=== PATIENT | male | born 1940 | race Caucasian/White ===

== ENCOUNTER 2016-09-17 21:12 | Observation (INO) | payer MEDICARE, OTHER ==
[2016-09-17] MEDS ORDERED: BABY ASPIRIN 81 MG CHEW PO ONE (21:49)
[2016-09-17] MEDS ORDERED: NITRO-BID 2% UD PACKETS TOP ONE (21:49)
[2016-09-17] MEDS ORDERED: Nitrostat 0.4 MG (ED) SL ONE ×2 (21:49→21:55)
[2016-09-17] MEDS ORDERED: BABY ASPIRIN 81 MG CHEW ONE (21:54)
[2016-09-17] MEDS ORDERED: Sodium Chloride 0.9% 1000 ML 1,000 ML ONE (21:55)
[2016-09-17] MEDS ORDERED: NITRO-BID 2% UD PACKETS ONE (21:55)
--- NOTE | 2016-09-17 21:55 | ERPHSYRPT ---
- History of Present Illness Time Seen by Provider: 09/17/16 21:35 Source: patient Exam Limitations: clinical condition Patient Subjective Stated Complaint: Pt sts left arm tingling/numbness intermittent all day. Also states in left lower leg intermittent. Onset greater than 4 hours ago. Sts left chest pain that waxes and wanes from dull to sharp. Sts feels left side of head and neck is numb feeling. Rates pain currently 6/ 10. Sts nausea and shortness of breath. Denies diaphoresis today. Sts takes 325 ASA daily, took it today 0800. Sts also takes blood thinners - thinks its plavix. Denies difficulty with gait, denies difficulty finding words or having trouble speaking. Triage Nursing Assessment: Pt alert, oriented, ambulatory to tx room. Steady gait noted. Answers all questions appropriately. Skin p/w/d, resps non-labored. EKG at triage - Sinus rhythm. Physician History: PATIENT WITH A HISTORY OF HYPERTENSION, VERTEBRAL ARTERY STENOSIS, COMPLAINS OF LEFT SCALP, FACIAL, LEFT UPPER EXTREMITY NUMBNESS PAST 4 HOURS, AND THE PAST 3- 4 MONTHS. EVALUATED BY [facility] NEUROLOGIST AND NEUROSURGEON. PATIENT ALSO COMPLAINS OF DULL ACHING SUBSTERNAL CHEST PAIN OVER PAST FEW HOURS. Timing/Duration: hour(s) Severity: mild Character of Deficits: altered sensation, Left Facial, LUE Deficits: no difficulties Baseline/Normal Cognition: alert oriented x 3 Current Cognition: alert oriented x 3 Baseline Gait: walks w/o assistance Associated Symptoms: paresthesia (IN LEFT SIDE OF FACE AND UPPER ARM) Allergies/Adverse Reactions: No Known Drug Allergies Allergy (Unverified 01/28/16 14:53) Home Medications: Furosemide 80 mg [Lasix 80 mg] 80 mg PO BID 01/28/16 [History] Hydralazine HCl 200 mg PO BID 01/28/16 [History] Hydrochlorothiazide 12.5 mg PO DAILY 01/28/16 [History] Losartan Potassium 100 mg PO DAILY 01/28/16 [History] Potassium Chloride 20 Meq [Klor-Con 20 MEQ] 40 meq PO DAILY 01/28/16 [History] Cetirizine HCl 10 mg PO DAILY 09/17/16 [History] Clopidogrel Bisulfate 75 mg [PLAVIX 75 MG Tablet] 75 mg PO DAILY 09/17/16 [History] Meclizine HCl 25 mg [Antivert 25 mg] 12.5 mg PO Q8H PRN PRN 09/17/16 [ History] Hx Tetanus, Diphtheria Vaccination/Date Given: No Hx Influenza Vaccination/Date Given: Yes Hx Pneumococcal Vaccination/Date Given: No Immunizations Up to Date: No - Review of Systems Constitutional: No Fever, No Chills Eyes: No Symptoms Ears, Nose, & Throat: No Symptoms Respiratory: No Symptoms, No Cough, No Dyspnea Cardiac: Chest Pain, No Edema, No Syncope Abdominal/Gastrointestinal: No Symptoms, No Abdominal Pain, No Nausea, No Vomiting, No Diarrhea Genitourinary Symptoms: No Symptoms, No Dysuria Musculoskeletal: No Symptoms, No Back Pain, No Neck Pain Skin: No Symptoms, No Rash Neurological: Parasthesia, No Dizziness, No Focal Weakness, No Sensory Changes Psychological: No Symptoms Endocrine: No Symptoms All Other Systems: Reviewed and Negative - Past Medical History Pertinent Past Medical History: Yes Cardiac History: High Cholesterol, Hypertension Other Medical History: water retention, VBI - Past Surgical History Past Surgical History: Yes Cardiac: Cardiac Catheterization Gastrointestinal: Colon Resection Other Surgical History: colon resection--ulcer, SHOULDER BILAT - Social History Smoking Status: Former smoker Exposure to second hand smoke: No Drug Use: none Patient Lives Alone: No Significant Family History: heart disease, hypertension - Nursing Vital Signs Nursing Vital Signs: Initial Vital Signs Temperature 98.7 F Temperature Source Oral Pulse Rate 75 Respiratory Rate 16 Blood Pressure [Left Arm] 130/76 Pain Intensity 6 - Physical Exam General Appearance: no apparent distress, alert Eye Exam: bilateral eye: normal inspection, PERRL, EOMI Ears, Nose, Throat Exam: normal ENT inspection Neck Exam: normal inspection, non-tender, supple Respiratory: normal breath sounds Cardiovascular: regular rate/rhythm, normal heart sounds Gastrointestinal: soft, normal bowel sounds Back Exam: normal inspection, normal range of motion Extremity Exam: normal inspection, normal range of motion Peripheral Pulses: carotid (R): 2+, carotid (L): 2+, femoral (R): 2+, femoral (L ): 2+, dorsalis-pedis (R): 2+, dorsalis-pedis (L): 2+ 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, 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: normal hearing, normal speech Coordination/Gait: normal finger to nose Motor/Sensory: no motor deficit, no sensory deficit DTR: bicep (R): 2+, bicep (L): 2+, tricep (R): 2+, tricep (L): 2+, knee (R): 2+ , knee (L): 2+, ankle (R): 2+, ankle (L): 2+ Skin Exam: normal color SpO2 Interpretation: normal SpO2: 96 Oxygen Delivery: Room Air - Course Nursing assessment & vital signs reviewed: Yes EKG Interpreted by Me: RATE, Sinus Rhythm, NORMAL AXIS, Non-specific ST Changes (RATE 85) Ordered Tests: Active Orders 24 hr Category Date Time Status Bedrest with BRP/BSC ROUTINE Activity 09/17/16 23:44 Active Admission/Status Order ROUTINE Care 09/17/16 23:44 Active Call Admit Doctor for Orders ROUTINE Care 09/17/16 23:43 Active Code Status Order ROUTINE Care 09/17/16 23:44 Active EKG-ER Only STAT Care 09/17/16 21:49 Active IV Care Q6H Care 09/17/16 23:44 Active IV Insertion STAT Care 09/17/16 21:32 Active Implement Chest Pain Pathway ROUTINE Care 09/17/16 23:44 Active Oxygen-ED Only NASAL CANNULA 2 lpm Care 09/17/16 21:49 Active Ronnie Lucas ROUTINE Care 09/17/16 23:44 Active Telemetry ROUTINE Care 09/17/16 23:44 Active Vital Signs Q4H Care 09/17/16 23:43 Active Weight,Daily 0600 Care 09/17/16 23:44 Active Cardiac Diet Diet 09/17/16 Breakfast Active CHEST 1 VIEW (PORTABLE) Stat Exams 09/17/16 21:46 Taken HEAD WITHOUT CONTRAST [CT] Stat Exams 09/17/16 21:46 Taken CBC W DIFF Stat Lab 09/17/16 22:00 Completed CMP Stat Lab 09/17/16 22:00 Completed LIPID PROFILE AM.LAB Lab 09/18/16 04:00 Ordered MAGNESIUM Stat Lab 09/17/16 22:00 Completed PROTIME WITH INR Stat Lab 09/17/16 22:00 Completed TROPONIN Q3H Lab 09/17/16 22:00 Completed TROPONIN Q3H Lab 09/18/16 01:00 Ordered TROPONIN Q3H Lab 09/18/16 04:00 Ordered TROPONIN Q3H Lab 09/18/16 07:00 Ordered TROPONIN Q3H Lab 09/18/16 10:00 Ordered EKG Q8HX2,QAMX3,PRN RT 09/17/16 23:44 Active Pulse Oximetry Q4H RT 09/17/16 23:44 Active Transfer Order Routine Transfer 09/17/16 23:43 Ordered Medication Summary Generic Name Dose Route Start Last Admin Trade Name Freq PRN Reason Stop Dose Admin Acetaminophen 650 mg 09/17/16 23:43 Tylenol 325 Mg PO 10/17/16 23:42 Q4H PRN PRN PAIN AND/OR FEVER Al Hydrox/Mg Hydrox/Simethicone 30 ml 09/17/16 23:43 Maalox Es 30 Ml Unit Dose PO 10/17/16 23:42 Q4H PRN PRN INDIGESTION Aspirin 325 mg 09/18/16 10:00 Ecotrin 325 Mg PO 10/18/16 09:59 DAILY RAFAL Clopidogrel Bisulfate 75 mg 09/18/16 10:00 Plavix 75 Mg Tablet PO 10/18/16 09:59 DAILY RAFAL Sodium Chloride 1,000 mls @ 50 mls/hr 09/17/16 22:00 09/17/16 22:00 Sodium Chloride 0.9% 1000 Ml IV 10/17/16 21:59 50 mls/hr .Q20H RAFAL Administration Magnesium Hydroxide 30 - 60 ml 09/17/16 23:43 Milk Of Magnesia 30 Ml PO 10/17/16 23:42 QDP PRN CONSTIPATION Morphine Sulfate 2 mg 09/17/16 23:43 Morphine Sulfate 2 Mg Inj IV 09/22/16 23:42 .Q15MIN PRN PRN CHEST PAIN Nitroglycerin 0.4 mg 09/17/16 23:43 Nitrostat 0.4 Mg Tablet SL 10/17/16 23:42 .Q5MIN PRN CHEST PAIN Nitroglycerin 1 gm 09/18/16 06:00 Nitro-Bid 2% Ud Packets TOP 10/18/16 05:59 Q8HT RAFAL Ondansetron HCl 4 mg 09/17/16 23:43 Zofran 4 Mg/2 Ml Vial IV 10/17/16 23:42 Q4H PRN PRN NAUSEA/VOMITING Senna/Docusate Sodium 2 udtab 09/17/16 23:43 Senokot-S Tablet PO 10/17/16 23:42 BID PRN PRN CONSTIPATION Discontinued Medications Generic Name Dose Route Start Last Admin Trade Name Freq PRN Reason Stop Dose Admin Aspirin 324 mg 09/17/16 21:49 09/17/16 22:00 Baby Aspirin 81 Mg Chew PO 09/17/16 21:50 324 mg STAT ONE Administration Aspirin Confirm 09/17/16 21:54 Baby Aspirin 81 Mg Chew Administered 09/17/16 21:55 Dose 324 mg .ROUTE .STK-MED ONE Sodium Chloride Confirm 09/17/16 21:55 Sodium Chloride 0.9% 1000 Ml Administered 09/17/16 21:56 Dose 1,000 mls @ ud .ROUTE .STK-MED ONE Nitroglycerin 0.4 mg 09/17/16 21:49 09/17/16 22:00 Nitrostat 0.4 Mg (Ed) SL 09/17/16 21:50 0.4 mg STAT ONE Administration Nitroglycerin 1 gm 09/17/16 21:49 09/17/16 22:00 Nitro-Bid 2% Ud Packets TOP 09/17/16 21:50 1 gm STAT ONE Administration Nitroglycerin Confirm 09/17/16 21:55 Nitro-Bid 2% Ud Packets Administered 09/17/16 21:56 Dose 1 gm .ROUTE .STK-MED ONE Nitroglycerin Confirm 09/17/16 21:55 Nitrostat 0.4 Mg (Ed) Administered 09/17/16 21:56 Dose 0.4 mg SL .STK-MED ONE Lab/Rad Data: Laboratory Result Diagrams 09/17/16 22:00 09/17/16 22:00 Laboratory Results 09/17/16 09/17/16 09/17/16 Range/Units 22:00 22:00 22:00 WBC (4.0-10.5) K/mm3 RBC (4.1-5.6) M/mm3 Hgb (12.5-18.0) gm/dl Hct (42-50) % MCV (78-100) fl MCH (26-32) pg MCHC (32-36) g/dl RDW (11.5-14.0) % Plt Count (150-450) K/mm3 MPV (6-9.5) fl Gran % (36.0-66.0) % Lymphocytes % (24.0-44.0) % Monocytes % (0.0-12.0) % Eosinophils % (0.00-5.0) % Basophils % (0.0-0.4) % Basophils # (0-0.4) INR 1.02 (0.8-3.0) Sodium (136-145) mEq/L Potassium (3.5-5.1) mEq/L Chloride (98-107) mEq/L Carbon Dioxide (21-32) mEq/L Anion Gap (5-15) MEQ/L BUN (9-20) mg/dL Creatinine (0.55-1.30) mg/dl Estimated GFR ML/MIN Glucose (70-110) MG/DL Calcium (8.5-10.1) mg/dL Magnesium 2.2 (1.8-2.4) mg/dL Total Bilirubin (0.2-1.0) mg/dL AST (15-37) U/L ALT (12-78) U/L Alkaline Phosphatase (46-116) U/L Troponin I < 0.017 (0.000-0.056) ng/ml Serum Total Protein (6.4-8.2) gm/dL Albumin (3.4-5.0) g/dL 09/17/16 09/17/16 Range/Units 22:00 22:00 WBC 7.3 (4.0-10.5) K/mm3 RBC 4.27 (4.1-5.6) M/mm3 Hgb 13.6 (12.5-18.0) gm/dl Hct 39.4 L (42-50) % MCV 92.3 (78-100) fl MCH 31.9 (26-32) pg MCHC 34.5 (32-36) g/dl RDW 13.6 (11.5-14.0) % Plt Count 164 (150-450) K/mm3 MPV 9.6 H (6-9.5) fl Gran % 68.6 H (36.0-66.0) % Lymphocytes % 18.0 L (24.0-44.0) % Monocytes % 10.4 (0.0-12.0) % Eosinophils % 2.5 (0.00-5.0) % Basophils % 0.5 (0.0-0.4) % Basophils # 0.04 (0-0.4) INR (0.8-3.0) Sodium 142 (136-145) mEq/L Potassium 3.6 (3.5-5.1) mEq/L Chloride 104 (98-107) mEq/L Carbon Dioxide 28.5 (21-32) mEq/L Anion Gap 12.6 (5-15) MEQ/L BUN 26 H (9-20) mg/dL Creatinine 1.38 H (0.55-1.30) mg/dl Estimated GFR 54 ML/MIN Glucose 120 H (70-110) MG/DL Calcium 8.9 (8.5-10.1) mg/dL Magnesium (1.8-2.4) mg/dL Total Bilirubin 0.4 (0.2-1.0) mg/dL AST 24 (15-37) U/L ALT 35 (12-78) U/L Alkaline Phosphatase 61 (46-116) U/L Troponin I (0.000-0.056) ng/ml Serum Total Protein 7.2 (6.4-8.2) gm/dL Albumin 4.0 (3.4-5.0) g/dL - Progress Progress Note: 09/17/16 22:10 PATIENT GIVEN BABY ASPIRIN 81MG X 4 TABLETS, NITROGLYCERIN 0.4MG SL X1, NITROPASTE 1'' ANTERIOR CHEST WALL Discussed with : Ciro (DISCUSSED WITH DR FIELD AT 2250 FOR OBSERVATION) - Departure Time of Disposition: 23:55 Departure Disposition: Observation Clinical Impression: ACUTE CHEST PAIN, VERTEBRAL ARTERY STENOSIS Condition: Stable Critical Care Time: No Referrals: EDITH FIELD MD [Primary Care Provider] -
[2016-09-17] MEDS: Sodium Chloride 0.9% 1000 ML 1,000 ML IV SCH (22:00)
[2016-09-17 22:11] LABS: BASOPHIL % 0.5 % (0.0-0.4); Eosinophil % 2.5 % (0.00-5.0); Granulocytes % 68.6 % (36.0-66.0); Mean Cell Volume 92.3 fl (78-100); Mean Corpuscular Hemoglobin 31.9 pg (26-32); Mean Platelet Volume 9.6 fl (6-9.5); Monocytes % 10.4 % (0.0-12.0); Platelet Count 164 K/mm3 (150-450); Red Blood Count 4.27 M/mm3 (4.1-5.6); Red Cell Distribution Width 13.6 % (11.5-14.0); White Blood Count 7.3 K/mm3 (4.0-10.5)
[2016-09-17 22:27] LABS: INR 1.02 (0.8-3.0); PROTIME 11.4 SECONDS (8.83-12.87)
[2016-09-17 22:35] LABS: ANION GAP 12.6 MEQ/L (5-15); BILIRUBIN,TOTAL 0.4 mg/dL (0.2-1.0); Carbon Dioxide 28.5 mEq/L (21-32); Potassium 3.6 mEq/L (3.5-5.1); Total Protein 7.2 gm/dL (6.4-8.2)
[2016-09-17] MEDS ORDERED: Zofran 4 MG/2 ML VIAL IV PRN (23:43)
[2016-09-17] MEDS ORDERED: MILK OF MAGNESIA 30 ML PO PRN (23:43)
[2016-09-17] MEDS ORDERED: TYLENOL 325 MG PO PRN (23:43)
[2016-09-17] MEDS ORDERED: Senokot-S Tablet PO PRN (23:43)
[2016-09-17] MEDS ORDERED: MAALOX ES 30 ML UNIT DOSE PO PRN (23:43)
[2016-09-17] MEDS ORDERED: MORPHINE SULFATE 2 MG INJ IV PRN (23:43)
[2016-09-17] MEDS ORDERED: Nitrostat 0.4 MG Tablet SL PRN (23:43)
[2016-09-18] MEDS: Sodium Chloride 0.9% 1000 ML 1,000 ML IV SCH (03:16)
[2016-09-18] MEDS ORDERED: NITRO-BID 2% UD PACKETS TOP SCH (06:00)
[2016-09-18 07:35] VITALS: BP 128/64; PULSE 85; O2SAT 91
--- NOTE | 2016-09-18 08:35 | XRAY ---
Indication: Left-sided numbness and left-sided headache. Multiple contiguous axial images obtained through the head without contrast. Comparison: January 28, 2016. Again there is age-appropriate global atrophy and moderate periventricular degenerative micro-ischemia bilaterally. No acute intracranial hemorrhage, abnormal extra-axial fluid collection, or mass effect. Fourth ventricle is midline without hydrocephalus. Bony calvarium intact. Visualized paranasal sinuses and mastoid air cells are clear. Impression: Stable nonacute senile brain. Comment: Preliminary interpretation was made by [facility]. No discrepancy. CTDI 68.98
--- NOTE | 2016-09-18 08:37 | XRAY ---
Indication: Chest pain. Comparison: January 28, 2016. Portable chest remains clear again with chronic right hemidiaphragm elevation. Heart is not enlarged for AP portable technique. Vascularity normal. Bony thorax intact again with mild osteopenia and degenerative changes. Impression: Stable nonacute chest with chronic features.
--- NOTE | 2016-09-18 09:41 | PCM.SSS ---
History of Present Illness - Chief Complaint Chief Complaint: Acute chest pain History of Present Illness: is a 75 year old male who is well known to me who follows at [facility] with a history of vertebrbasilar insufficiency. He presented to the ER last night with numbness to the left arm and chest pain that was substernal and tight, he had nausea and shortness of breath. His symptoms have totally resolved since admission, he has frequent episodes of numbness in the facial and neck region etc related to his VBI and is followed for those. 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 He is symptom free at this time other than a headache which he attributes to nitro paste. - Review of Systems Constitutional: No Fever, No Chills Respiratory: No Symptoms Cardiac: No Chest Pain, No Edema, No Syncope Skin: No Rash Neurological: No Dizziness, No Focal Weakness, No Sensory Changes All Other Systems: Reviewed and Negative Medications & Allergies Home Medications: Home Medication List Furosemide 80 mg [Lasix 80 mg] 80 mg PO BID 01/28/16 [History Confirmed ] Hydralazine HCl 200 mg PO DAILY 01/28/16 [History Confirmed 09/18/16] Hydrochlorothiazide 12.5 mg PO DAILY 01/28/16 [History Confirmed 09/18/16] Losartan Potassium 100 mg PO DAILY 01/28/16 [History Confirmed 09/18/16] Potassium Chloride 20 Meq [Klor-Con 20 MEQ] 40 meq PO BID 01/28/16 [History Confirmed 09/18/16] Cetirizine HCl 10 mg PO DAILY 09/17/16 [History Confirmed 09/17/16] Clopidogrel Bisulfate 75 mg [PLAVIX 75 MG Tablet] 75 mg PO DAILY 09/17/16 [History Confirmed 09/17/16] Meclizine HCl 25 mg [Antivert 25 mg] 12.5 mg PO Q8H PRN PRN 09/17/16 [ History Confirmed 09/17/16] Allergies/Adverse Reactions: Allergies Allergy/AdvReac Type Severity Reaction Status Date / Time No Known Drug Allergies Allergy Unverified 01/28/16 14:53 - Past Medical History Past Medical History: Yes Neurological History: No Pertinent History ENT History: Cataracts Cardiac History: High Cholesterol, Hypertension Respiratory History: Sleep Apnea Endocrine Medical History: No Pertinent History Musculoskelatal History: No Pertinent History GI Medical History: GI Bleed, Polyps History: No Pertinent History Pyscho-Social History: No Pertinent History Male Reproductive Disorders: No Pertinent History Comment: water retention, VBI - Past Surgical History Past Surgical History: Yes Neuro Surgical History: No Pertinent History Cardiac History: Cardiac Catheterization Respiratory Surgery: No Pertinent History GI Surgical History: Colon Resection Genitourinary Surgical Hx: No Pertinent History Musculskeletal Surgical Hx: Other Male Surgical History: No Pertinent History Other Surgical History: colon resection--ulcer, SHOULDER BILAT, Aleks knees - Social History Smoking Status: Former smoker Exposure to second hand smoke: No Alcohol: None Drug Use: none Significant Family History: heart disease, hypertension - Physical Exam Vital Signs: Vital Signs - 24 hr Temp Pulse Resp BP Pulse Ox 09/18/16 07:34 98.2 F 85 19 128/64 91 L 09/18/16 04:00 97.7 F 76 17 131/68 95 09/18/16 00:34 97.9 F 79 18 166/78 98 09/18/16 00:07 80 18 136/76 09/17/16 23:57 96 09/17/16 23:15 75 16 130/76 96 09/17/16 22:30 75 16 150/86 96 09/17/16 21:28 98.7 F 88 14 156/87 96 General Appearance: no apparent distress, alert Neurologic Exam: alert, oriented x 3, cooperative, normal mood/affect, nml cerebellar function, nml station & gait, sensation nml, No motor deficits Eye Exam: PERRL/EOMI, eyes nml inspection Respiratory Exam: normal breath sounds, lungs clear, No respiratory distress Cardiovascular Exam: regular rate/rhythm, normal heart sounds, normal peripheral pulses Skin Exam: normal color, warm, dry, No rash Results - Labs Lab/Micro Results: Lab Results-Last 24 Hours 09/18/16 09/18/16 09/18/16 Range/Units 01:00 04:05 04:05 Troponin I < 0.017 < 0.017 (0.000-0.056) ng/ml Triglycerides 161 (30-200) mg/dL Cholesterol 109 (100-200) mg/dL LDL Cholesterol 43 (5-99) mg/dL HDL Cholesterol 41 (35-60) mg/dL Heart Disease Risk Ratio 2.7 09/18/16 Range/Units 07:00 Troponin I < 0.017 (0.000-0.056) ng/ml Triglycerides (30-200) mg/dL Cholesterol (100-200) mg/dL LDL Cholesterol (5-99) mg/dL HDL Cholesterol (35-60) mg/dL Heart Disease Risk Ratio - Other Procedures and Tests Respiratory Therapy 09/19/16 05:00 EKG DAILY 09/20/16 05:00 EKG DAILY 09/21/16 05:00 EKG DAILY Assessment/Plan (1) Chest pain Current Visit: Yes Status: Acute Code(s): R07.9 - CHEST PAIN, UNSPECIFIED (2) Vertebrobasilar artery insufficiency Current Visit: Yes Status: Acute Code(s): G45.0 - VERTEBRO-BASILAR ARTERY SYNDROME Hospital Summary - Vitals & Intake/Output Vital Signs: Vital Signs Temperature 98.2 F 09/18/16 07:34 Pulse Rate 85 09/18/16 07:34 Respiratory Rate 19 09/18/16 07:34 Blood Pressure 128/64 09/18/16 07:34 O2 Sat by Pulse Oximetry 91 L 09/18/16 07:34 Intake & Output: Intake & Output 09/15/16 09/16/16 09/17/16 09/18/16 11:59 11:59 11:59 11:59 Intake Total 760 Balance 760 Weight 104.326 kg - Lab Result Diagrams: 09/17/16 22:00 09/17/16 22:00 Lab Results-Last 24 Hrs: Lab Results-Last 24 Hours 09/18/16 09/18/16 09/18/16 Range/Units 01:00 04:05 04:05 Troponin I < 0.017 < 0.017 (0.000-0.056) ng/ml Triglycerides 161 (30-200) mg/dL Cholesterol 109 (100-200) mg/dL LDL Cholesterol 43 (5-99) mg/dL HDL Cholesterol 41 (35-60) mg/dL Heart Disease Risk Ratio 2.7 09/18/16 Range/Units 07:00 Troponin I < 0.017 (0.000-0.056) ng/ml Triglycerides (30-200) mg/dL Cholesterol (100-200) mg/dL LDL Cholesterol (5-99) mg/dL HDL Cholesterol (35-60) mg/dL Heart Disease Risk Ratio - Procedures and Test Procedures and Tests throughout Hospitalization: Therapy Orders & Screens 09/17/16 23:44 EKG Q8HX2,QAMX3,PRN Comment: 09/18/16 05:30 EKG ROUTINE Comment: Diagnosis: Acute chest pain 09/19/16 05:00 EKG DAILY Comment: Diagnosis: Acute chest pain 09/20/16 05:00 EKG DAILY Comment: Diagnosis: Acute chest pain 09/21/16 05:00 EKG DAILY Comment: Diagnosis: Acute chest pain - Discharge Disposition: Home, Self-Care Condition: Stable Prescriptions: Continue Potassium Chloride 20 Meq [Klor-Con 20 MEQ] 40 meq PO BID Losartan Potassium 100 mg PO DAILY Hydralazine HCl 200 mg PO DAILY Furosemide 80 mg [Lasix 80 mg] 80 mg PO BID Hydrochlorothiazide 12.5 mg PO DAILY Meclizine HCl 25 mg [Antivert 25 mg] 12.5 mg PO Q8H PRN PRN PRN Reason: Dizziness Cetirizine HCl 10 mg PO DAILY Clopidogrel Bisulfate 75 mg [PLAVIX 75 MG Tablet] 75 mg PO DAILY Additional Instructions: return for arm or leg muscle weakness, slurred speech, facial drooping or other new concerns. call Dr Guidry on Tuesday morning to schedule a followup appointment DORITA. return for persistent chest pain or other new concerns. Follow up with: EDITH FIELD MD [Primary Care Provider] -
[2016-09-18] MEDS ORDERED: Ecotrin 325 MG PO SCH (10:00)
[2016-09-18] MEDS ORDERED: PLAVIX 75 MG Tablet PO SCH (10:00)
== END 2016-09-18 11:10 | disposition home or self-care (01) ==
LOC: ED 21:12 → MED SURG 09-18 00:32
PROVIDERS: ADMIT Family Medicine; ATTEND Family Medicine
DX: R07.9 Chest pain, unspecified (principal); G45.0 Vertebro-basilar artery syndrome; R51 Headache; I10 Essential (primary) hypertension; Z79.899 Other long term (current) drug therapy
CPT/HCPCS: 36000; 36415; 70450; 71010; 80053; 83690; 83735; 84484; 85025; 85610; 93005; 93268; 96360; 96361; 99284; 99285; G0378

== ENCOUNTER 2017-09-26 13:59 | Inpatient (IN) | payer MEDICARE, OTHER ==
[2017-09-26] MEDS ORDERED: Sodium Chloride 0.9% 1000 ML 1,000 ML IV SCH (14:15)
--- NOTE | 2017-09-26 14:35 | ERPHSYRPT ---
- History of Present Illness Time Seen by Provider: 09/26/17 14:17 Source: patient, family (), other (MERCHANDISE ADJUSTMENT CLERK Ollie) Patient Subjective Stated Complaint: states was seen earlier today by rnp and had blood work done. was called at home and told his blood sugar was high. has been having dry mouth and felt off balance lately. denies any other symptoms Triage Nursing Assessment: skin w/d, color normal, resp easy. Physician History: CC: general weakness Hx: 76 y/o patient of Dr Field. He has one month hx of fatigue, feeling general weakness, and polyuria, polydipsia, and 10 pound weight loss. No fever or chills. No chest pain. No V/D. He went to office today and the sugar was high so he was sent here for admission. Pt has no hx of DM. He has hx of vertebro- basilar insufficiency. 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 Labs this AM: Faz180, creat 2.03, A1C 10.4. Normal CBC. Severity: moderate Allergies/Adverse Reactions: No Known Drug Allergies Allergy (Verified 09/26/17 14:24) Home Medications: Furosemide 80 mg [Lasix 80 mg] 80 mg PO BID 01/28/16 [History] Hydralazine HCl 200 mg PO DAILY 01/28/16 [History] Hydrochlorothiazide 12.5 mg PO DAILY 01/28/16 [History] Losartan Potassium 100 mg PO DAILY 01/28/16 [History] Potassium Chloride 20 Meq [Klor-Con 20 MEQ] 40 meq PO BID 01/28/16 [History] Cetirizine HCl 10 mg PO DAILY 09/17/16 [History] Clopidogrel Bisulfate 75 mg [PLAVIX 75 MG Tablet] 75 mg PO DAILY 09/17/16 [History] Meclizine HCl 25 mg [Antivert 25 mg] 12.5 mg PO Q8H PRN PRN 09/17/16 [ History] Hx Tetanus, Diphtheria Vaccination/Date Given: No Hx Influenza Vaccination/Date Given: Yes Hx Pneumococcal Vaccination/Date Given: Yes - Review of Systems Constitutional: Malaise, Weakness, Weight Loss, No Fever, No Chills Eyes: No Symptoms Ears, Nose, & Throat: No Symptoms Respiratory: No Cough, No Dyspnea Cardiac: No Chest Pain Abdominal/Gastrointestinal: No Abdominal Pain, No Nausea, No Vomiting, No Diarrhea Skin: No Rash Neurological: No Focal Weakness, No Headache, No Parasthesia Endocrine: Polyuria, Polydipsia All Other Systems: Reviewed and Negative - Past Medical History Pertinent Past Medical History: Yes Neurological History: No Pertinent History ENT History: Cataracts Cardiac History: High Cholesterol, Hypertension Respiratory History: Sleep Apnea Endocrine Medical History: No Pertinent History Musculoskeletal History: No Pertinent History GI Medical History: GI Bleed, Polyps History: No Pertinent History Psycho-Social History: No Pertinent History Male Reproductive Disorders: No Pertinent History Other Medical History: water retention, VBI - Past Surgical History Past Surgical History: Yes Neuro Surgical History: No Pertinent History Cardiac: Cardiac Catheterization Respiratory: No Pertinent History Gastrointestinal: Colon Resection Genitourinary: No Pertinent History Musculoskeletal: Other Male Surgical History: No Pertinent History Other Surgical History: colon resection--ulcer, SHOULDER BILAT, Aleks knees - Social History Smoking Status: Former smoker Exposure to second hand smoke: No Drug Use: none Patient Lives Alone: No Significant Family History: heart disease, hypertension - Nursing Vital Signs Nursing Vital Signs: Initial Vital Signs Temperature 97.5 F 09/26/17 14:06 Pulse Rate 117 H 09/26/17 14:06 Respiratory Rate 16 09/26/17 14:06 Blood Pressure 133/78 09/26/17 14:06 O2 Sat by Pulse Oximetry 95 09/26/17 14:06 Pain Scale Pain Intensity 0 - Physical Exam General Appearance: alert Eye Exam: PERRL/EOMI Ears, Nose, Throat Exam: normal ENT inspection, dry mucous membranes Neck Exam: normal inspection, non-tender, supple Respiratory Exam: normal breath sounds Cardiovascular Exam: regular rate/rhythm Gastrointestinal/Abdomen Exam: soft, No tenderness, No distention Male Genitalia Exam: normal genitalia Extremity Exam: pedal edema Neurologic Exam: alert, oriented x 3, cooperative, 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 nml as tested, sensation nml, No motor deficits Skin Exam: warm, dry, No rash SpO2 Interpretation: normal SpO2: 96 - Course Nursing assessment & vital signs reviewed: Yes Ordered Tests: Active Orders 24 hr Category Date Time Status Clean Catch Urine Specimen STAT Care 09/26/17 14:12 Active EKG-ER Only STAT Care 09/26/17 14:12 Active IV Insertion STAT Care 09/26/17 14:12 Active Pulse Oximetry (ED) STAT Care 09/26/17 14:12 Active Glucose,Critical Care Urgent Lab 09/26/17 14:40 Completed MAGNESIUM Stat Lab 09/26/17 14:25 Received UA W/RFX UR CULTURE Stat Lab 09/26/17 14:25 Completed VENOUS BLOOD GAS Urgent Lab 09/26/17 14:40 Completed Medication Summary Generic Name Dose Route Start Last Admin Trade Name Kala PRN Reason Stop Dose Admin Sodium Chloride 1,000 mls @ 200 mls/hr 09/26/17 14:15 Sodium Chloride 0.9% 1000 Ml IV 10/26/17 14:14 .Q5H RAFAL Lab/Rad Data: Laboratory Results 09/26/17 09/26/17 Range/Units 14:40 14:25 VBG pH 7.37 (7.32-7.42) VBG pCO2 at Pat Temp 51 (42-55) mm/Hg VBG pO2 at Pat Temp 33 (25-40) mm/Hg VBG HCO3 29.5 H* (22-28) meq/L VBG O2 Sat (Noel) 72.0 L (95-100) VBG Base Excess 3.0 H (-2.0-2.0) VBG Hemoglobin 15.6 VBG Carboxyhemoglobin 3.6 (0.0-6.9) % T HGB POC Potassium 4.1 (3.5-5.1) Glucose 723 H* (70-110) Ur Collection Type VOID Urine Color YELLOW (YELLOW) Urine Appearance CLEAR (CLEAR) Urine pH 6.0 (5-6) Ur Specific [place] 1.005 (1.005-1.025) Urine Protein NEGATIVE (Negative) Urine Ketones NEGATIVE (NEGATIVE) Urine Blood NEGATIVE (0-5) Matthew/ul Urine Nitrite NEGATIVE (NEGATIVE) Urine Bilirubin NEGATIVE (NEGATIVE) Urine Urobilinogen NORMAL (0-1) mg/dL Ur Leukocyte Esterase NEGATIVE (NEGATIVE) Urine Culture Reflexed NO (NO) Urine Glucose 500 (NEGATIVE) mg/dL Specimen Received 09/26/17 1530 - Progress Progress Note: 09/26/17 15:07 Not in DKA. IVF started. No sign of infection. Called Dr Field and will place in obs. Counseled pt/family regarding: lab results, diagnosis, need for follow-up - Departure Time of Disposition: 15:08 Departure Disposition: Observation Clinical Impression: New onset type 1 diabetes mellitus, uncontrolled, Azotemia Condition: Fair Critical Care Time: No Referrals: EDITH FIELD MD [Primary Care Provider] -
[2017-09-26 14:41] LABS: Appearance CLEAR (CLEAR); Bilirubin NEGATIVE (NEGATIVE); Blood NEGATIVE Ery/ul (0-5); Glucose 500 mg/dL (NEGATIVE); Ketones NEGATIVE (NEGATIVE); Leukocyte Esterase NEGATIVE (NEGATIVE); Nitrite NEGATIVE (NEGATIVE); Protein,Urine Dip NEGATIVE (Negative); Specific Gravity 1.005 (1.005-1.025); Urobilinogen NORMAL mg/dL (0-1)
[2017-09-26 14:44] LABS: VBG CARBOXYHEMOGLOBIN 3.6 % T HGB (0.0-6.9); VBG HCO3- 29.5 meq/L (22-28); VBG HEMOGLOBIN 15.6; VBG POTASSIUM 4.1 (3.5-5.1); VBG pH 7.37 (7.32-7.42)
[2017-09-26] MEDS ORDERED: NovoLOG Insulin SQ ONE ×2 (15:07→17:00)
[2017-09-26] MEDS ORDERED: NovoLOG Insulin ONE (15:26)
[2017-09-26] MEDS ORDERED: Sodium Chloride 0.9% 1000 ML 1,000 ML ONE (15:26)
[2017-09-26] MEDS ORDERED: TYLENOL 325 MG PO PRN (15:45)
[2017-09-26] MEDS ORDERED: ANTIVERT 25 MG PO PRN (16:59)
[2017-09-26] MEDS ORDERED: LASIX 80 MG PO SCH (17:00)
[2017-09-26] MEDS ORDERED: Lantus Insulin SQ ONE (17:00)
[2017-09-26] MEDS: Zofran 4 MG/2 ML VIAL IV PRN (20:56)
[2017-09-26] MEDS: Klor Con 10 MEQ PO SCH (20:56)
[2017-09-26] MEDS ORDERED: NON-FORMULARY ITEM (Potassium Chloride 20 Meq [Klor-Con 20 Meq] 40 MEQ) PO SCH (22:00)
[2017-09-26] MEDS: NovoLOG Insulin SQ PRN (22:09)
[2017-09-26] MEDS: Sodium Chloride 0.9% 1000 ML 1,000 ML IV SCH (22:09)
[2017-09-27] MEDS: NovoLOG Insulin SQ PRN ×4 (00:33→21:50)
[2017-09-27] MEDS: Sodium Chloride 0.9% 1000 ML 1,000 ML IV SCH ×3 (04:52→17:49)
[2017-09-27] MEDS: Zofran 4 MG/2 ML VIAL IV PRN (05:00)
[2017-09-27 06:19] LABS: ANION GAP 11.6 MEQ/L (5-15); Carbon Dioxide 29.9 mEq/L (21-32); Creatinine 1 1.73 mg/dl (0.55-1.30); Potassium 3.4 mEq/L (3.5-5.1)
--- NOTE | 2017-09-27 09:11 | PCM.HP ---
History of Present Illness - Chief Complaint Chief Complaint: DM. Azotemia. History of Present Illness: is a 76 year old male pt of Dr. Tanner with hx Vertebrobasilar Artery Insufficiency who has been having several months of dizziness, weight loss, polyuria, dry mouth. He thought several sx were related to the vertebral arteries. He was found in ER to have BS 755. This morning the dry mouth is gone, BS is 149, he is feeling better. Less frequent urination. - Review of Systems Constitutional: Weight Loss (12 lb since 08/01/17) Ears, Nose, & Throat: Throat Pain (intermittent; none currently), Hoarse (for the past 1 wk) Musculoskeletal: Fall, Injury (R lower back 1 wk ago; no pain currently) Endocrine: Polyuria, Polydipsia Medications & Allergies Home Medications: Home Medication List Furosemide 80 mg [Lasix 80 mg] 80 mg PO DAILY 01/28/16 [History Confirmed 09/26/17] Hydralazine HCl 200 mg PO DAILY 01/28/16 [History Confirmed 09/26/17] Hydrochlorothiazide 12.5 mg PO DAILY 01/28/16 [History Confirmed 09/26/17] Losartan Potassium 100 mg PO DAILY 01/28/16 [History Confirmed 09/26/17] Potassium Chloride 20 Meq [Klor-Con 20 MEQ] 40 meq PO BID 01/28/16 [History Confirmed 09/26/17] Cetirizine HCl 10 mg PO DAILY 09/17/16 [History Confirmed 09/26/17] Clopidogrel Bisulfate 75 mg [PLAVIX 75 MG Tablet] 75 mg PO DAILY 09/17/16 [History Confirmed 09/26/17] Meclizine HCl 25 mg [Antivert 25 mg] 12.5 mg PO Q8H PRN PRN 09/17/16 [ History Confirmed 09/26/17] Aspirin [Aspirin EC] 325 mg PO DAILY 09/27/17 [History Confirmed 09/27/17] Atorvastatin Calcium [Lipitor 20MG Tablet] 20 mg PO DAILY 09/27/17 [History Confirmed 09/27/17] Allergies/Adverse Reactions: Allergies Allergy/AdvReac Type Severity Reaction Status Date / Time No Known Drug Allergies Allergy Verified 09/26/17 14:24 - Past Medical History Past Medical History: Yes Neurological History: No Pertinent History ENT History: Cataracts Cardiac History: High Cholesterol, Hypertension Respiratory History: Sleep Apnea Endocrine Medical History: No Pertinent History Musculoskelatal History: No Pertinent History GI Medical History: GI Bleed, Polyps History: No Pertinent History Pyscho-Social History: No Pertinent History Male Reproductive Disorders: No Pertinent History Comment: water retention, VBI - Past Surgical History Past Surgical History: Yes Neuro Surgical History: No Pertinent History Cardiac History: Cardiac Catheterization Respiratory Surgery: No Pertinent History GI Surgical History: Colon Resection Genitourinary Surgical Hx: No Pertinent History Musculskeletal Surgical Hx: Other Male Surgical History: No Pertinent History Other Surgical History: colon resection--ulcer, SHOULDER BILAT, Aleks knees - Social History Smoking Status: Former smoker Exposure to second hand smoke: No Alcohol: None Drug Use: none Significant Family History: heart disease, hypertension - Physical Exam Vital Signs: Vital Signs - 24 hr Temp Pulse Resp BP Pulse Ox 09/27/17 07:38 98.3 F 94 H 18 128/65 94 L 09/27/17 04:00 98.6 F 91 H 18 126/61 95 09/27/17 00:00 98.2 F 94 H 19 107/61 95 09/26/17 20:00 98.2 F 111 H 19 114/57 93 L 09/26/17 16:26 97.5 F 98 H 20 133/78 94 L 09/26/17 15:08 96 09/26/17 14:22 96 09/26/17 14:06 97.5 F 117 H 16 133/78 95 General Appearance: no apparent distress, alert, obese Neurologic Exam: alert, oriented x 3, cooperative Eye Exam: eyes nml inspection Ears, Nose, Throat Exam: moist mucous membranes Neck Exam: normal inspection, non-tender, No mass, No lymphadenopathy Respiratory Exam: normal breath sounds, lungs clear, No crackles/rales, No rhonchi, No wheezing Cardiovascular Exam: regular rate/rhythm, normal heart sounds, No murmur Gastrointestinal/Abdomen Exam: soft, normal bowel sounds, No tenderness, No distention, No mass Back Exam: other (R lower back with approx 4x5 cm area macular purple discoloration with firm mass deep to the area) Extremity Exam: normal inspection, No pedal edema, No swelling Skin Exam: normal color, warm, dry, No rash Results - Labs Lab/Micro Results: Accuchecks Date 09/27/17 Time 07:30 Accucheck Value: 181 Accucheck Value: 145 Accucheck Value: 171 Accucheck Value: 356 Lab Results-Last 24 Hours 09/26/17 09/26/17 09/27/17 Range/Units 16:12 18:41 05:36 Sodium 140 (136-145) mEq/L Potassium 3.4 L (3.5-5.1) mEq/L Chloride 102 (98-107) mEq/L Carbon Dioxide 29.9 (21-32) mEq/L Anion Gap 11.6 (5-15) MEQ/L BUN 28 H (9-20) mg/dL Creatinine 1.73 H (0.55-1.30) mg/dl Estimated GFR 41 ML/MIN Glucose 820 H* 565 H* 149 H (70-110) MG/DL Calcium 9.0 (8.5-10.1) mg/dL Accuchecks Date 09/27/17 Time 07:30 Accucheck Value: 181 Accucheck Value: 145 Accucheck Value: 171 Accucheck Value: 356 Assessment/Plan (1) New onset type 1 diabetes mellitus, uncontrolled Current Visit: Yes Status: Acute Assessment & Plan: A1c 10.4. His BS this morning under 200. Will cover with SS insulin and then dose Lantus starting tomorrow. Diabetes education. Code(s): E10.65 - TYPE 1 DIABETES MELLITUS WITH HYPERGLYCEMIA (2) Azotemia Current Visit: Yes Status: Acute Assessment & Plan: Cr 1.73 this morning - recheck in a.m., anticipate improvement with IVF and decreased blood glucose. Code(s): R79.89 - OTHER SPECIFIED ABNORMAL FINDINGS OF BLOOD CHEMISTRY (3) Hypokalemia Current Visit: No Status: Acute Code(s): E87.6 - HYPOKALEMIA (4) Vertebrobasilar artery insufficiency Current Visit: No Status: Acute Assessment & Plan: Overall pt's sx better since he's been on plavix. Code(s): G45.0 - VERTEBRO-BASILAR ARTERY SYNDROME
[2017-09-27] MEDS ORDERED: NON-FORMULARY ITEM (Losartan Potassium [Losartan Potassium] 100 MG) PO SCH (10:00)
[2017-09-27] MEDS ORDERED: HYDRALAZINE HCL 200 MG PO SCH (10:00)
[2017-09-27] MEDS ORDERED: NON-FORMULARY ITEM (Hydrochlorothiazide [Hydrochlorothiazide] 12.5 MG) PO SCH (10:00)
[2017-09-27] MEDS ORDERED: LASIX 80 MG PO SCH (10:00)
[2017-09-27] MEDS: Apresoline 25 MG TABLET PO SCH ×2 (10:44)
[2017-09-27] MEDS: Klor Con 10 MEQ PO SCH ×2 (10:44→21:50)
[2017-09-27] MEDS: CLARITIN 10 MG PO SCH (10:51)
[2017-09-27] MEDS: Cozaar 50 MG PO SCH (10:52)
[2017-09-27] MEDS: Ecotrin 325 MG PO SCH (10:54)
[2017-09-27] MEDS: hydroDIURIL 25 MG PO SCH (10:55)
[2017-09-27] MEDS: PLAVIX 75 MG Tablet PO SCH (10:56)
[2017-09-27] MEDS: ZOCOR 20MG PO SCH (10:56)
[2017-09-27 15:01] LABS: Hematocrit 37.1 % (42-50); Hemoglobin 12.5 gm/dl (12.5-18.0); Mean Cell Volume 93.2 fl (78-100); Mean Corpuscular Hemoglobin 31.4 pg (26-32); Mean Corpuscular Hgb Concent. 33.7 g/dl (32-36); Mean Platelet Volume 11.6 fl (6-9.5); Platelet Count 176 K/mm3 (150-450); Red Blood Count 3.98 M/mm3 (4.1-5.6); Red Cell Distribution Width 13.2 % (11.5-14.0); White Blood Count 8.3 K/mm3 (4.0-10.5)
[2017-09-27 15:13] LABS: ALBUMIN 3.1 g/dL (3.4-5.0); ALKALINE PHOSPHATASE 55 U/L (46-116); ANION GAP 10.6 MEQ/L (5-15); BLOOD UREA NITROGEN 29 mg/dL (9-20); CHLORIDE 100 mEq/L (98-107); Carbon Dioxide 29.1 mEq/L (21-32); Creatinine 1 2.02 mg/dl (0.55-1.30); EST GLOMERULAR FILTRATION RATE 34 ML/MIN; Glucose 438 MG/DL (70-110); SGOT/AST 44 U/L (15-37); SGPT/ALT 36 U/L (12-78); SODIUM 136 mEq/L (136-145); Total Protein 6.1 gm/dL (6.4-8.2)
[2017-09-27 15:29] LABS: TROPONIN < 0.017 ng/ml (0.000-0.056)
[2017-09-28] MEDS: Sodium Chloride 0.9% 1000 ML 1,000 ML IV SCH ×2 (00:12→06:57)
[2017-09-28] MEDS ORDERED: Lasix 40 MG/4 ML IV SCH (08:45)
[2017-09-28] MEDS ORDERED: DULCOLAX 5 MG PO PRN (08:51)
[2017-09-28] MEDS: hydroDIURIL 25 MG PO SCH (08:53)
[2017-09-28] MEDS: Apresoline 25 MG TABLET PO SCH (08:53)
[2017-09-28] MEDS: Klor Con 10 MEQ PO SCH ×2 (08:53→21:22)
--- NOTE | 2017-09-28 08:53 | PCM.NOTE ---
Date and Time: 09/28/17 0851 Subjective Assessment: patient feeling a little better today, c/o constipation. blood sugars are still significantly elevated. currently he is only receiving sliding scale insulin. Objective Exam General Appearance: no apparent distress, alert Skin Exam: normal color, warm, dry Respiratory Exam: normal breath sounds, lungs clear, No respiratory distress Cardiovascular Exam: regular rate/rhythm, normal heart sounds Gastrointestinal/Abdomen Exam: soft, No tenderness, No mass Extremity Exam: normal inspection, normal range of motion OBJECTIVE DATA Vital Signs: Vital Signs - 24 hr Temp Pulse Resp BP Pulse Ox 09/28/17 07:53 98.3 F 91 H 18 159/76 95 09/28/17 04:23 98.4 F 97 H 18 146/71 96 09/28/17 00:06 98.5 F 91 H 18 122/56 97 09/27/17 20:00 98.9 F 99 H 20 122/64 95 09/27/17 16:00 20 09/27/17 15:57 98.1 F 107 H 20 120/61 94 L 09/27/17 12:00 98.6 F 91 H 16 122/71 96 Pain Assessment - Last Documented Pain Intensity 0 Pain Scale Used 0-10 Pain Scale Intake and Output: Intake & Output 09/25/17 09/26/17 09/27/17 09/28/17 11:59 11:59 11:59 11:59 Intake Total 2557 2734 Output Total 850 1750 Balance 1707 984 Weight 100.4 kg 100.1 kg Lab Results: Accuchecks Date 09/27/17 Date 09/27/17 Time 22:00 Time 11:30 Accucheck Value: 328 Accucheck Value: 410 Accucheck Value: 328 Lab Results-Last 24 Hours 09/27/17 09/27/17 09/27/17 Range/Units 14:15 14:15 14:15 WBC 8.3 (4.0-10.5) K/mm3 RBC 3.98 L (4.1-5.6) M/mm3 Hgb 12.5 (12.5-18.0) gm/dl Hct 37.1 L (42-50) % MCV 93.2 (78-100) fl MCH 31.4 (26-32) pg MCHC 33.7 (32-36) g/dl RDW 13.2 (11.5-14.0) % Plt Count 176 (150-450) K/mm3 MPV 11.6 H (6-9.5) fl Sodium 136 (136-145) mEq/L Potassium 4.0 (3.5-5.1) mEq/L Chloride 100 (98-107) mEq/L Carbon Dioxide 29.1 (21-32) mEq/L Anion Gap 10.6 (5-15) MEQ/L BUN 29 H (9-20) mg/dL Creatinine 2.02 H (0.55-1.30) mg/dl Estimated GFR 34 ML/MIN Glucose 438 H (70-110) MG/DL Calcium 8.0 L (8.5-10.1) mg/dL Magnesium (1.8-2.4) mg/dL Total Bilirubin 0.40 (0.2-1.0) mg/dL AST 44 H (15-37) U/L ALT 36 (12-78) U/L Alkaline Phosphatase 55 (46-116) U/L Troponin I < 0.017 (0.000-0.056) ng/ml NT-Pro-B Natriuret Pep 118 (0-125) pg/ml Serum Total Protein 6.1 L (6.4-8.2) gm/dL Albumin 3.1 L (3.4-5.0) g/dL 09/27/17 Range/Units 14:15 WBC (4.0-10.5) K/mm3 RBC (4.1-5.6) M/mm3 Hgb (12.5-18.0) gm/dl Hct (42-50) % MCV (78-100) fl MCH (26-32) pg MCHC (32-36) g/dl RDW (11.5-14.0) % Plt Count (150-450) K/mm3 MPV (6-9.5) fl Sodium (136-145) mEq/L Potassium (3.5-5.1) mEq/L Chloride (98-107) mEq/L Carbon Dioxide (21-32) mEq/L Anion Gap (5-15) MEQ/L BUN (9-20) mg/dL Creatinine (0.55-1.30) mg/dl Estimated GFR ML/MIN Glucose (70-110) MG/DL Calcium (8.5-10.1) mg/dL Magnesium 2.0 (1.8-2.4) mg/dL Total Bilirubin (0.2-1.0) mg/dL AST (15-37) U/L ALT (12-78) U/L Alkaline Phosphatase (46-116) U/L Troponin I (0.000-0.056) ng/ml NT-Pro-B Natriuret Pep (0-125) pg/ml Serum Total Protein (6.4-8.2) gm/dL Albumin (3.4-5.0) g/dL Radiology Exams: Radiology Procedures Category Date Time Status CHEST 1 VIEW (PORTABLE) Routine Exams 09/28/17 08:40 Stop Req ECHO W/2D AND DOPPLER [US] Stat Exams 09/27/17 17:14 Taken Multi-Disciplinary Progress Notes: Multi-Disciplinary Progress Notes 09/27/17 12:00 (created 09/27/17 15:26) Case Management Note by Kimberly Hernandez CALL TO [facility], SPOKE WITH CAROLYN. REPORTS THAT PT'S INSURANCE WILL PAY FOR GLUCOMETER, BRAND NAME - TRUE METRIX WITH TEST STRIPS AND LANCETS. THEY WILL NEED DOCUMENTATION OF DIAGNOSIS ALONG WITH TESTING INSTRUCTIONS. REPORTS THAT [facility] WILL DELIVER EQUIP WITH ANY NEW MEDS PRIOR TO DISCHARGE HOME. PT HAS SIGNED UP FOR "MEDS TO BED" SERVICES. Initialized on 09/27/17 15:26 - END OF NOTE Assessment/Plan (1) New onset type 2 diabetes mellitus Current Visit: Yes Status: Acute Assessment & Plan: add basal lantus insulin today and try to dose accordingly to establish a home regimen. 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
[2017-09-28] MEDS: CLARITIN 10 MG PO SCH (08:54)
[2017-09-28] MEDS: Cozaar 50 MG PO SCH (08:54)
[2017-09-28] MEDS: Ecotrin 325 MG PO SCH (08:54)
[2017-09-28] MEDS: ZOCOR 20MG PO SCH (08:54)
[2017-09-28] MEDS: PLAVIX 75 MG Tablet PO SCH (08:55)
[2017-09-28] MEDS: Lasix 40 MG PO SCH (08:55)
[2017-09-28] MEDS: Lantus Insulin SQ SCH (09:16)
[2017-09-28 10:50] LABS: ANION GAP 10.6 MEQ/L (5-15); Calcium 7.7 mg/dL (8.5-10.1); Carbon Dioxide 26.9 mEq/L (21-32); Creatinine 1 1.49 mg/dl (0.55-1.30); Potassium 3.7 mEq/L (3.5-5.1)
[2017-09-28] MEDS: NovoLOG Insulin SQ PRN ×3 (11:38→23:34)
[2017-09-28] MEDS: Zofran 4 MG/2 ML VIAL IV PRN ×2 (11:38→23:34)
[2017-09-29] MEDS: Sodium Chloride 0.9% 1000 ML 1,000 ML IV SCH (02:35)
[2017-09-29 06:16] LABS: BASOPHIL % 0.3 % (0.0-0.4); Basophil (Absolute #) 0.02 (0-0.4); Eosinophil % 2.6 % (0.00-5.0); Eosinophil (Absolute #) 0.16 (0-0.5); Granulocyte Absolute (ANC) 4.26 (1.4-6.9); Granulocytes % 68.9 % (36.0-66.0); Hematocrit 36.5 % (42-50); Hemoglobin 12.5 gm/dl (12.5-18.0); Lymphocyte (Absolute #) 1.16 (1.0-4.6); Lymphocytes % 18.8 % (24.0-44.0); Mean Cell Volume 91.9 fl (78-100); Mean Corpuscular Hgb Concent. 34.2 g/dl (32-36); Mean Platelet Volume 11.1 fl (6-9.5); Monocyte (Absolute #) 0.58 (0.0-1.3); Monocytes % 9.4 % (0.0-12.0); Platelet Count 142 K/mm3 (150-450); Red Blood Count 3.97 M/mm3 (4.1-5.6); White Blood Count 6.2 K/mm3 (4.0-10.5)
[2017-09-29 06:28] LABS: Mean Corpuscular Hemoglobin 31.4 pg (26-32)
[2017-09-29 06:31] LABS: ALBUMIN 3.2 g/dL (3.4-5.0); ANION GAP 7.9 MEQ/L (5-15); BILIRUBIN,TOTAL 0.5 mg/dL (0.2-1.0); Calcium 8.5 mg/dL (8.5-10.1); Carbon Dioxide 31.9 mEq/L (21-32); Creatinine 1 1.35 mg/dl (0.55-1.30); Potassium 3.3 mEq/L (3.5-5.1); Total Protein 6.2 gm/dL (6.4-8.2)
[2017-09-29 07:31] VITALS: BP 140/75; PULSE 89; O2SAT 97
--- NOTE | 2017-09-29 07:39 | PCM.DS ---
Discharge Summary Date of Admission: 09/26/17 20:15 Admitting Physician: EDITH FIELD Primary Care Provider: EDITH FIELD Allergies Allergies No Known Drug Allergies Allergy (Verified 09/26/17 14:24) Hospital Summary - Hospital Course Hospital Course: patient was admitted with azotemia and new onset out of control diabetes, renal function has normalized and sugars are much better controlled. patient feels well, has been given instruction on insulin and diabetes. - Vitals & Intake/Output Vital Signs: Vital Signs Temperature 97.7 F 09/29/17 07:30 Pulse Rate 89 09/29/17 07:30 Respiratory Rate 20 09/29/17 07:30 Blood Pressure 140/75 09/29/17 07:30 O2 Sat by Pulse Oximetry 97 09/29/17 07:30 Intake & Output: Intake & Output 09/26/17 09/27/17 09/28/17 09/29/17 11:59 11:59 11:59 11:59 Intake Total 2317 2734 1680 Output Total 300 1750 2250 Balance 2016 984 -570 Weight 100.4 kg 100.1 kg 100.2 kg - Lab Result Diagrams: 09/29/17 05:30 09/29/17 05:30 Lab Results-Last 24 Hrs: Accuchecks Date 09/28/17 Date 09/28/17 Date 09/28/17 Time 22:00 Time 16:30 Time 11:30 Accucheck Value: 362 Accucheck Value: 361 Accucheck Value: 294 Lab Results-Last 24 Hours 09/28/17 09/29/17 09/29/17 Range/Units 10:19 05:30 05:30 WBC 6.2 (4.0-10.5) K/mm3 RBC 3.97 L (4.1-5.6) M/mm3 Hgb 12.5 (12.5-18.0) gm/dl Hct 36.5 L (42-50) % MCV 91.9 (78-100) fl MCH 31.4 (26-32) pg MCHC 34.2 (32-36) g/dl RDW 13.0 (11.5-14.0) % Plt Count 142 L (150-450) K/mm3 MPV 11.1 H (6-9.5) fl Gran % 68.9 H (36.0-66.0) % Lymphocytes % 18.8 L (24.0-44.0) % Monocytes % 9.4 (0.0-12.0) % Eosinophils % 2.6 (0.00-5.0) % Basophils % 0.3 (0.0-0.4) % Basophils # 0.02 (0-0.4) Sodium 139 142 (136-145) mEq/L Potassium 3.7 3.3 L (3.5-5.1) mEq/L Chloride 105 105 (98-107) mEq/L Carbon Dioxide 26.9 31.9 (21-32) mEq/L Anion Gap 10.6 7.9 (5-15) MEQ/L BUN 21 H 18 (9-20) mg/dL Creatinine 1.49 H 1.35 H (0.55-1.30) mg/dl Estimated GFR 49 55 ML/MIN Glucose 313 H 198 H (70-110) MG/DL Calcium 7.7 L 8.5 (8.5-10.1) mg/dL Magnesium 2.2 (1.8-2.4) mg/dL Total Bilirubin 0.50 (0.2-1.0) mg/dL AST 30 (15-37) U/L ALT 33 (12-78) U/L Alkaline Phosphatase 59 (46-116) U/L Serum Total Protein 6.2 L (6.4-8.2) gm/dL Albumin 3.2 L (3.4-5.0) g/dL Micro Results-Entire Visit: Accuchecks Date 09/28/17 Date 09/28/17 Date 09/28/17 Time 22:00 Time 16:30 Time 11:30 Accucheck Value: 362 Accucheck Value: 361 Accucheck Value: 294 - Radiology Exams Ordered Rad Exams-Entire Visit: Radiology Procedures Category Date Time Status ECHO W/2D AND DOPPLER [US] Stat Exams 09/27/17 17:14 Taken - Procedures and Test Procedures and Tests throughout Hospitalization: Therapy Orders & Screens 09/27/17 14:04 EKG STAT Comment: Diagnosis: DM. Azotemia. Discharge Exam General Appearance: no apparent distress, alert Skin Exam: normal color, warm, dry Respiratory Exam: normal breath sounds, lungs clear, No respiratory distress Cardiovascular Exam: regular rate/rhythm, normal heart sounds Gastrointestinal/Abdomen Exam: soft, No tenderness, No mass Extremity Exam: normal inspection, normal range of motion Final Diagnosis/Problem List - Final Discharge Diagnosis/Problem (1) New onset type 2 diabetes mellitus Current Visit: Yes Status: Acute (2) Azotemia Current Visit: Yes Status: Acute (3) Vertebrobasilar artery insufficiency Current Visit: No Status: Chronic - Discharge Disposition: Home, Self-Care Condition: Good Prescriptions: New Blood-Glucose Meter [Accu-Chek] 1 each MC TID #1 kit Blood Sugar Diagnostic, Drum [Accu-Chek Compact] 1 each MC TID #100 strip Lancets [Accu-Chek Softclix] 1 each MC TID #100 each Pen Needle, Diabetic [Insulin Pen Needle] 1 each SQ DAILY #100 dis.needle Insulin Glargine,Hum.rec.anlog [Lantus Solostar] 30 unit SQ DAILY #4 pens Metformin HCl 500 mg PO BID #60 tablet Continue Potassium Chloride 20 Meq [Klor-Con 20 MEQ] 20 meq PO BID Losartan Potassium 100 mg PO DAILY Hydralazine HCl 100 mg PO DAILY Furosemide 80 mg [Lasix 80 mg] 40 mg PO DAILY Hydrochlorothiazide 12.5 mg PO DAILY Meclizine HCl 25 mg [Antivert 25 mg] 12.5 mg PO Q8H PRN PRN PRN Reason: Dizziness Cetirizine HCl 10 mg PO DAILY Clopidogrel Bisulfate 75 mg [PLAVIX 75 MG Tablet] 75 mg PO DAILY Aspirin [Aspirin EC] 325 mg PO DAILY Atorvastatin Calcium [Lipitor 20MG Tablet] 20 mg PO DAILY Instructions: Calorie Counting Diet Additional Instructions: take lantus 30 units sq once daily, check your blood sugar three times daily fasting and two hours after lunch and dinner. bring a log of blood sugars to your followup appointment with Dr Field in a week Follow up with: EDITH FIELD MD [Primary Care Provider] -
[2017-09-29] MEDS: Klor Con 10 MEQ PO SCH (08:40)
[2017-09-29] MEDS: Ecotrin 325 MG PO SCH (08:40)
[2017-09-29] MEDS: Cozaar 50 MG PO SCH (08:40)
[2017-09-29] MEDS: PLAVIX 75 MG Tablet PO SCH (08:40)
[2017-09-29] MEDS: Apresoline 25 MG TABLET PO SCH (08:41)
[2017-09-29] MEDS: ZOCOR 20MG PO SCH (08:41)
[2017-09-29] MEDS: hydroDIURIL 25 MG PO SCH (08:42)
[2017-09-29] MEDS: Lasix 40 MG PO SCH (08:42)
[2017-09-29] MEDS: CLARITIN 10 MG PO SCH (08:42)
[2017-09-29] MEDS: Lantus Insulin SQ SCH (08:43)
[2017-09-29] MEDS: NovoLOG Insulin SQ PRN ×2 (08:43→11:33)
== END 2017-09-29 12:40 | disposition home health service (06) | DRG 638 ==
LOC: ED 13:59 → MED SURG 15:39 → OBSVTOIN 20:15
PROVIDERS: ADMIT Family Medicine; ATTEND Family Medicine
DX: E11.9 Type 2 diabetes mellitus without complications (principal); G45.0 Vertebro-basilar artery syndrome; R79.89 Other specified abnormal findings of blood chemistry; R35.8 Other polyuria; R63.1 Polydipsia; Z79.4 Long term (current) use of insulin; E78.00 Pure hypercholesterolemia, unspecified; I10 Essential (primary) hypertension; E87.6 Hypokalemia; G47.30 Sleep apnea, unspecified; Z72.0 Tobacco use; E10.65 Type 1 diabetes mellitus with hyperglycemia
CPT/HCPCS: 36000; 36415; 80048; 80053; 81002; 82805; 82947; 82962; 83735; 83880; 84484; 85025; 85027; 93005; 93268; 93306; 96360; 99285; G0378; J2405; A9270-GY

== ENCOUNTER 2017-09-30 16:23 | Emergency (ER) | payer MEDICARE, OTHER ==
--- NOTE | 2017-09-30 17:24 | ERPHSYRPT ---
- History of Present Illness Time Seen by Provider: 09/30/17 17:09 Source: patient, family Exam Limitations: no limitations Patient Subjective Stated Complaint: here for bs of 515 at home at 1430, pt dx with diabetic last week Triage Nursing Assessment: pt alert, resp easy, skin w/d/p. co abd pain, bs here 376. Physician History: The patient is a 76-year-old male with his complaining of having elevated blood sugars today. His blood glucose is been in the 500s. He ate lunch around noon and then took his blood sugar reading at 2:30 with a reading of in the 500s. He states he doesn't feel quite right today. He had a recent diagnosis last week of diabetes and was hospitalized for this. He has just started taking metformin 500 mg 3 times a day and Lantus 30 units in the morning. He was released from the hospital yesterday. His past medical history is significant for vertebrobasilar artery insufficiency, diabetes, hypertension, high cholesterol. Timing/Duration: today Severity: moderate Associated Symptoms: malaise Allergies/Adverse Reactions: No Known Drug Allergies Allergy (Verified 09/30/17 16:50) Home Medications: Furosemide 80 mg [Lasix 80 mg] 40 mg PO DAILY 01/28/16 [History] Hydralazine HCl 100 mg PO DAILY 01/28/16 [History] Hydrochlorothiazide 12.5 mg PO DAILY 01/28/16 [History] Losartan Potassium 100 mg PO DAILY 01/28/16 [History] Potassium Chloride 20 Meq [Klor-Con 20 MEQ] 20 meq PO BID 01/28/16 [History] Cetirizine HCl 10 mg PO DAILY 09/17/16 [History] Clopidogrel Bisulfate 75 mg [PLAVIX 75 MG Tablet] 75 mg PO DAILY 09/17/16 [History] Meclizine HCl 25 mg [Antivert 25 mg] 12.5 mg PO Q8H PRN PRN 09/17/16 [ History] Aspirin [Aspirin EC] 325 mg PO DAILY 09/27/17 [History] Atorvastatin Calcium [Lipitor 20MG Tablet] 20 mg PO DAILY 09/27/17 [History] Hx Tetanus, Diphtheria Vaccination/Date Given: No Hx Influenza Vaccination/Date Given: Yes Hx Pneumococcal Vaccination/Date Given: Yes Immunizations Up to Date: Yes - Review of Systems Constitutional: No Fever, No Chills Eyes: No Symptoms Ears, Nose, & Throat: No Symptoms Respiratory: No Cough, No Dyspnea Cardiac: No Chest Pain, No Edema, No Syncope Abdominal/Gastrointestinal: No Abdominal Pain, No Nausea, No Vomiting, No Diarrhea Genitourinary Symptoms: No Dysuria Musculoskeletal: No Back Pain, No Neck Pain Skin: No Rash Neurological: No Dizziness, No Focal Weakness, No Sensory Changes Psychological: No Symptoms Endocrine: No Symptoms Hematologic/Lymphatic: No Symptoms Immunological/Allergic: No Symptoms All Other Systems: Reviewed and Negative - Past Medical History Pertinent Past Medical History: Yes Neurological History: No Pertinent History ENT History: Cataracts Cardiac History: High Cholesterol, Hypertension Respiratory History: Sleep Apnea Endocrine Medical History: Diabetes Type II Musculoskeletal History: No Pertinent History GI Medical History: GI Bleed, Polyps History: No Pertinent History Psycho-Social History: No Pertinent History Male Reproductive Disorders: No Pertinent History Other Medical History: water retention, VBI - Past Surgical History Past Surgical History: Yes Neuro Surgical History: No Pertinent History Cardiac: Cardiac Catheterization Respiratory: No Pertinent History Gastrointestinal: Colon Resection Genitourinary: No Pertinent History Musculoskeletal: Other Male Surgical History: No Pertinent History Other Surgical History: colon resection--ulcer, SHOULDER BILAT, Aleks knees - Social History Smoking Status: Never smoker Exposure to second hand smoke: No Drug Use: none Patient Lives Alone: No Significant Family History: heart disease, hypertension - Nursing Vital Signs Nursing Vital Signs: Initial Vital Signs Temperature 98.2 F 09/30/17 16:41 Pulse Rate 97 H 09/30/17 16:41 Respiratory Rate 16 09/30/17 16:41 Blood Pressure 140/78 09/30/17 16:41 O2 Sat by Pulse Oximetry 98 09/30/17 16:41 Pain Scale Pain Intensity 5 - Physical Exam General Appearance: no apparent distress, alert Eye Exam: PERRL/EOMI, eyes nml inspection Ears, Nose, Throat Exam: normal ENT inspection, TMs normal, pharynx normal, moist mucous membranes Neck Exam: normal inspection, non-tender, supple, full range of motion Respiratory Exam: normal breath sounds, lungs clear, No respiratory distress Cardiovascular Exam: regular rate/rhythm, normal heart sounds, normal peripheral pulses Gastrointestinal/Abdomen Exam: soft Rectal Exam: not done Back Exam: normal inspection, normal range of motion, No CVA tenderness, No vertebral tenderness Extremity Exam: normal inspection, normal range of motion, pelvis stable Neurologic Exam: alert, oriented x 3, cooperative, normal mood/affect, nml cerebellar function, nml station & gait, sensation nml, No motor deficits Skin Exam: normal color, warm, dry, No rash Lymphatic Exam: No adenopathy SpO2 Interpretation: normal SpO2: 98 Oxygen Delivery: Room Air Ordered Tests: Active Orders 24 hr Category Date Time Status BMP Stat Lab 09/30/17 17:55 Completed CBC W DIFF Stat Lab 09/30/17 17:55 Completed Lactic Acid Stat Lab 09/30/17 17:33 Results UA W/RFX UR CULTURE Stat Lab 09/30/17 18:15 Completed Lab/Rad Data: Laboratory Result Diagrams 09/30/17 17:55 09/30/17 17:55 Laboratory Results 09/30/17 09/30/17 09/30/17 Range/Units 18:15 17:55 17:55 WBC 7.8 (4.0-10.5) K/mm3 RBC 4.34 (4.1-5.6) M/mm3 Hgb 13.7 (12.5-18.0) gm/dl Hct 39.5 L (42-50) % MCV 91.0 (78-100) fl MCH 31.6 (26-32) pg MCHC 34.7 (32-36) g/dl RDW 13.1 (11.5-14.0) % Plt Count 158 (150-450) K/mm3 MPV 10.9 H (6-9.5) fl Gran % 73.9 H (36.0-66.0) % Lymphocytes % 16.3 L (24.0-44.0) % Monocytes % 8.7 (0.0-12.0) % Eosinophils % 0.6 (0.00-5.0) % Basophils % 0.5 (0.0-0.4) % Basophils # 0.04 (0-0.4) Sodium 139 (136-145) mEq/L Potassium 3.8 (3.5-5.1) mEq/L Chloride 98 (98-107) mEq/L Carbon Dioxide 30.5 (21-32) mEq/L Anion Gap 14.3 (5-15) MEQ/L BUN 27 H (9-20) mg/dL Creatinine 1.85 H (0.55-1.30) mg/dl Estimated GFR 38 ML/MIN Glucose 369 H (70-110) MG/DL Lactic Acid (0.4-2.0) Calcium 9.2 (8.5-10.1) mg/dL Ur Collection Type CCMS Urine Color YELLOW (YELLOW) Urine Appearance CLEAR (CLEAR) Urine pH 6.0 (5-6) Ur Specific [place] 1.010 (1.005-1.025) Urine Protein NEGATIVE (Negative) Urine Ketones NEGATIVE (NEGATIVE) Urine Blood NEGATIVE (0-5) Matthew/ul Urine Nitrite NEGATIVE (NEGATIVE) Urine Bilirubin NEGATIVE (NEGATIVE) Urine Urobilinogen NORMAL (0-1) mg/dL Ur Leukocyte Esterase NEGATIVE (NEGATIVE) Urine Culture Reflexed NO (NO) Urine Glucose 1000 (NEGATIVE) mg/dL Specimen Received 09-30-17 1815 09/30/17 Range/Units 17:33 WBC (4.0-10.5) K/mm3 RBC (4.1-5.6) M/mm3 Hgb (12.5-18.0) gm/dl Hct (42-50) % MCV (78-100) fl MCH (26-32) pg MCHC (32-36) g/dl RDW (11.5-14.0) % Plt Count (150-450) K/mm3 MPV (6-9.5) fl Gran % (36.0-66.0) % Lymphocytes % (24.0-44.0) % Monocytes % (0.0-12.0) % Eosinophils % (0.00-5.0) % Basophils % (0.0-0.4) % Basophils # (0-0.4) Sodium (136-145) mEq/L Potassium (3.5-5.1) mEq/L Chloride (98-107) mEq/L Carbon Dioxide (21-32) mEq/L Anion Gap (5-15) MEQ/L BUN (9-20) mg/dL Creatinine (0.55-1.30) mg/dl Estimated GFR ML/MIN Glucose (70-110) MG/DL Lactic Acid 1.9 (0.4-2.0) Calcium (8.5-10.1) mg/dL Ur Collection Type Urine Color (YELLOW) Urine Appearance (CLEAR) Urine pH (5-6) Ur Specific [place] (1.005-1.025) Urine Protein (Negative) Urine Ketones (NEGATIVE) Urine Blood (0-5) Matthew/ul Urine Nitrite (NEGATIVE) Urine Bilirubin (NEGATIVE) Urine Urobilinogen (0-1) mg/dL Ur Leukocyte Esterase (NEGATIVE) Urine Culture Reflexed (NO) Urine Glucose (NEGATIVE) mg/dL Specimen Received - Progress Progress: unchanged Discussed with : Dannie Counseled pt/family regarding: lab results, diagnosis, need for follow-up - Departure Time of Disposition: 18:35 Departure Disposition: Home Clinical Impression: Diabetes, Acute renal failure Condition: Stable Critical Care Time: No Referrals: EDITH FIELD MD [Primary Care Provider] - Additional Instructions: You have elevated blood glucose levels today. You also have worsening kidney function. I spoke with Dr. Pandey who is circulation manager for Dr. Field this weekend. We recommend that you discontinue the metformin because of the worsening kidney function since being discharged from the hospital. Take glipizide XL 10 mg daily. Continue to take the Lantus at 30 units in the morning. Continue to chart your blood glucose levels as previously indicated and directed. Follow- up with Dr. Field next week. Prescriptions: Glipizide [Glipizide Xl] 10 mg PO DAILY #10 tab.[id number]
[2017-09-30 17:52] LABS: Lactic Acid 1.9 (0.4-2.0)
[2017-09-30 17:59] LABS: BASOPHIL % 0.5 % (0.0-0.4); Basophil (Absolute #) 0.04 (0-0.4); Eosinophil % 0.6 % (0.00-5.0); Eosinophil (Absolute #) 0.05 (0-0.5); Granulocyte Absolute (ANC) 5.75 (1.4-6.9); Granulocytes % 73.9 % (36.0-66.0); Hematocrit 39.5 % (42-50); Hemoglobin 13.7 gm/dl (12.5-18.0); Lymphocyte (Absolute #) 1.27 (1.0-4.6); Lymphocytes % 16.3 % (24.0-44.0); Mean Corpuscular Hemoglobin 31.6 pg (26-32); Mean Corpuscular Hgb Concent. 34.7 g/dl (32-36); Mean Platelet Volume 10.9 fl (6-9.5); Monocyte (Absolute #) 0.68 (0.0-1.3); Monocytes % 8.7 % (0.0-12.0); Platelet Count 158 K/mm3 (150-450); Red Blood Count 4.34 M/mm3 (4.1-5.6); Red Cell Distribution Width 13.1 % (11.5-14.0); White Blood Count 7.8 K/mm3 (4.0-10.5)
[2017-09-30 18:16] LABS: ANION GAP 14.3 MEQ/L (5-15); Calcium 9.2 mg/dL (8.5-10.1); Carbon Dioxide 30.5 mEq/L (21-32); Creatinine 1 1.85 mg/dl (0.55-1.30); Potassium 3.8 mEq/L (3.5-5.1)
[2017-09-30 18:28] LABS: Appearance CLEAR (CLEAR); Bilirubin NEGATIVE (NEGATIVE); Glucose 1000 mg/dL (NEGATIVE); Ketones NEGATIVE (NEGATIVE); Leukocyte Esterase NEGATIVE (NEGATIVE); Nitrite NEGATIVE (NEGATIVE); Protein,Urine Dip NEGATIVE (Negative); Urobilinogen NORMAL mg/dL (0-1)
[2017-09-30 18:29] LABS: Blood NEGATIVE Ery/ul (0-5)
[2017-09-30 18:47] VITALS: BP 158/100; PULSE 52; O2SAT 95
== END 2017-09-30 18:47 | disposition home or self-care (01) ==
LOC: ED 16:23
DX: E11.9 Type 2 diabetes mellitus without complications (principal); N17.9 Acute kidney failure, unspecified; Z79.899 Other long term (current) drug therapy
CPT/HCPCS: 36415; 80048; 81002; 83605; 85025; 99283

== ENCOUNTER 2024-05-26 22:03 | Emergency (ER) | payer MEDICARE, OTHER ==
--- NOTE | 2024-05-26 22:12 | ERPHSYRPT ---
- History of Present Illness Time Seen by Provider: 05/26/24 22:11 Source: patient Exam Limitations: no limitations Physician History: 83yo m presents via private vehicle for blurry vision in right eye that started 5h [employer], weakness in the right hand that started 10h [employer], left sided LEWIS that pt reports is chronic. At time of exam, pt was asymptomatic, felt that his blurry vision had resolved and his hand was feeling normal. Pt reports continued faint left sided LEWIS, reports this is chronic in nature and he receives injections for his HAs [id number]. Pt reports he is taking aspirin and plavix 2/2 hx of vertebral artery stenosis. Pt reportedly follows w/ cardiology for HTN. Timing/Duration: today, hour(s) (10) Severity: mild Character of Deficits: new weakness, vision problems Deficits: no difficulties Baseline/Normal Cognition: alert oriented x 3 Current Cognition: alert oriented x 3 Baseline Gait: walks w/o assistance Associated Symptoms: weakness, vision changes, headache, No confusion, No fatigue, No fever, No loss of consciousness, No numbness/tingling in legs/feet, No paresthesia, No seizures, No slurred speech, No trouble walking, No chest pain Allergies/Adverse Reactions: No Known Drug Allergies Allergy (Verified 05/26/24 22:09) Home Medications: Hydralazine HCl 100 mg PO BID 01/28/16 [History] Potassium Chloride 20 Meq [Klor-Con 20 MEQ] 20 meq PO BID 01/28/16 [History] hydroCHLOROthiazide [Hydrochlorothiazide] 12.5 mg PO DAILY 01/28/16 [History] Clopidogrel Bisulfate [PLAVIX Tablet] 75 mg PO DAILY 09/17/16 [History] Aspirin [Aspirin EC] 325 mg PO DAILY 09/27/17 [History] Atorvastatin Calcium [Lipitor 20MG Tablet] 20 mg PO DAILY 09/27/17 [History] Valsartan/Hydrochlorothiazide [Valsartan-Hctz 160-25 mg Tab] 1 tab PO BID 05/26/24 [History] carvediloL [Carvedilol] 12.5 mg PO BID 05/26/24 [History] Hx Tetanus, Diphtheria Vaccination/Date Given: No Hx Influenza Vaccination/Date Given: Yes Hx Pneumococcal Vaccination/Date Given: Yes - Review of Systems Constitutional: No Symptoms Eyes: Vision Changes, No Eye Pain Respiratory: Dyspnea, No Cough, No Stridor, No Wheezing Cardiac: Chest Pain, No Edema, No Palpitations Abdominal/Gastrointestinal: No Symptoms Neurological: Headache, Parasthesia, No Dizziness, No Focal Weakness, No Gait Changes, No Seizure, No Sensory Changes, No Speech Changes Psychological: No Symptoms - Past Medical History Pertinent Past Medical History: Yes Neurological History: No Pertinent History ENT History: Cataracts Cardiac History: High Cholesterol, Hypertension Respiratory History: Sleep Apnea Endocrine Medical History: Diabetes Type II Musculoskeletal History: No Pertinent History GI Medical History: GI Bleed, Polyps History: No Pertinent History Psycho-Social History: No Pertinent History Male Reproductive Disorders: No Pertinent History Other Medical History: water retention, VBI - Past Surgical History Past Surgical History: Yes Neuro Surgical History: No Pertinent History Cardiac: Cardiac Catheterization Respiratory: No Pertinent History Gastrointestinal: Colon Resection Genitourinary: No Pertinent History Musculoskeletal: Other Male Surgical History: No Pertinent History Other Surgical History: colon resection--ulcer, SHOULDER BILAT, Aleks knees Significant Family History: heart disease, hypertension - Social History Smoking Status: Never smoker Exposure to second hand smoke: No Drug Use: none Patient Lives Alone: No - Nursing Vital Signs Nursing Vital Signs: Initial Vital Signs Temperature 98 F 05/26/24 22:09 Pulse Rate 88 05/26/24 22:09 Respiratory Rate 18 05/26/24 22:09 Blood Pressure 168/91 05/26/24 22:09 O2 Sat by Pulse Oximetry 97 05/26/24 22:09 Pain Scale Pain Intensity 4 - Uli Coma Scale Best Eye Response ([place]): (4) open spontaneously Best Verbal Response (Uli): (5) oriented Best Motor Response ([place]): (6) obeys commands Uli Total: 15 - Physical Exam General Appearance: no apparent distress, alert Eye Exam: bilateral eye: normal inspection, PERRL, EOMI Neck Exam: normal inspection, non-tender Respiratory: normal breath sounds, lungs clear, airway intact, No respiratory distress Cardiovascular: regular rate/rhythm, normal heart sounds, capillary refill <2 sec Extremity Exam: normal inspection 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, oriented x 3, 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 Exam: normal hearing, normal speech, PERRL, No facial asymmetry, No facial droop Coordination/Gait: normal finger to nose, normal gait, normal cerebellar function Motor/Sensory: no motor deficit, no sensory deficit, no pronator drift, negative Babinski's sign Skin Exam: normal color SpO2 Interpretation: normal SpO2: 97 O2 Delivery: Room Air - Course EKG Interpreted by Me: RATE (81), Sinus Rhythm, Other (qtcb 453, single APC, non-specific ST changes, not suggestive of acute ischemia) Ordered Tests: Active Orders 24 hr Category Date Time Status EKG-ER Only STAT Care 05/26/24 22:10 Active NPO (ED) STAT Care 05/26/24 22:[address] ANGIOGRAPHY NECK [CT] Stat Exams 05/26/24 22:46 Completed CTA HEAD W AND/OR WO CONTRAST [CT] Stat Exams 05/26/24 22:46 Completed HEAD WITHOUT CONTRAST [CT] Stat Exams 05/26/24 22:10 Completed BMP Stat Lab 05/26/24 22:52 Completed CBC W DIFF Stat Lab 05/26/24 22:52 Completed ETHYL ALCOHOL Stat Lab 05/26/24 22:52 Completed TROPONIN Q4H Lab 05/26/24 22:52 Completed TROPONIN Q4H Lab 05/27/24 02:15 Ordered TROPONIN Q4H Lab 05/27/24 06:15 Ordered UA W/RFX UR CULTURE Stat Lab 05/26/24 22:56 Completed Urine Triage Profile Stat Lab 05/26/24 22:56 Completed Medication Summary Discontinued Medications Generic Name Dose Route Start Last Admin Trade Name Aldenq PRN Reason Stop Dose Admin Sodium Chloride 500 mls @ 500 mls/hr 05/26/24 23:47 05/27/24 00:48 Sodium Chloride 0.9% 500 Ml IV 05/27/24 00:46 Infused .Q1H ONE Infusion Sodium Chloride Confirm 05/26/24 23:47 Sodium Chloride 0.9% 500 Ml Administered 05/26/24 23:48 Dose 500 mls @ ud IV .STK-MED ONE Lab/Rad Data: Laboratory Result Diagrams 05/26/24 22:52 05/26/24 22:52 Laboratory Results 05/26/24 05/26/24 05/26/24 Range/Units 22:56 22:56 22:52 WBC (4.23-9.07) x10^3/uL RBC (4.63-6.08) x10^6/uL Hgb (13.7-17.5) g/dL Hct (40.1-51.0) % MCV (79.0-92.2) fL MCH (25.7-32.2) pg MCHC (32.3-36.5) g/dL RDW (11.6-14.4) % Plt Count (163-337) x10^3/uL MPV (9.4-12.4) fL Gran % (34.0-67.9) % Immature Gran % (Auto) (0.001-0.429) % Nucleat RBC Rel Count (0.00-0.2) % Eos # (Auto) (0.04-0.54) x10^3/uL Immature Gran # (Auto) (0.001-0.031) x10^3u/L Absolute Lymphs (auto) (1.32-3.57) x10^3/uL Absolute Monos (auto) (0.30-0.82) x10^3/uL Absolute Nucleated RBC (0.00-0.012) x10^3u/L Lymphocytes % (21.8-53.1) % Monocytes % (5.3-12.2) % Eosinophils % (0.8-7.0) % Basophils % (0.2-1.2) % Absolute Granulocytes (1.78-5.38) x10^3/uL Basophils # (0.01-0.08) x10^3/uL Sodium (135-145) mmol/L Potassium (3.5-5.1) mmol/L Chloride (98-107) mmol/L Carbon Dioxide (22-30) mmol/L Anion Gap (5-15) MEQ/L BUN (9-20) mg/dL Creatinine (0.66-1.25) mg/dL Estimated GFR ML/MIN Glucose (74-106) mg/dL Calcium (8.4-10.2) mg/dL Troponin I 0.021 (0.000-0.033) ng/mL Urine Color Yellow (Yellow) Urine Appearance Clear (Clear) Urine pH 5.5 (4.6-8.0) Ur Specific [place] 1.020 (1.005-1.030) Urine Protein 100 A (Negative) Urine Glucose (UA) Negative (Negative) mg/dL Urine Ketones Negative (Negative) Urine Blood Negative (Negative) Urine Nitrite Negative (Negative) Urine Bilirubin Negative (Negative) Urine Urobilinogen 0.2 (0.2) mg/dL Ur Leukocyte Esterase Negative (Negative) U Hyaline Cast (Auto) 6-10 A (0-2) /LPF Urine Microscopic RBC 0-2 (0-5) /HPF Urine Microscopic WBC 0-2 (0-5) /HPF Ur Epithelial Cells None Seen (None Seen) /HPF Urine Bacteria None Seen (None Seen) /HPF Urine Culture Reflexed NO (NO) Urine Opiates Level NEGATIVE (NEGATIVE) Ur Methadone NEGATIVE (NEGATIVE) Urine Barbiturates NEGATIVE (NEGATIVE) Ur Phencyclidine (PCP) NEGATIVE (NEGATIVE) Urine Amphetamine NEGATIVE (NEGATIVE) U Benzodiazepine Level NEGATIVE (NEGATIVE) Urine Cocaine NEGATIVE (NEGATIVE) Urine Marijuana (THC) NEGATIVE (NEGATIVE) Ethyl Alcohol (0-10) mg/dL 05/26/24 05/26/24 Range/Units 22:52 22:52 WBC 8.1 (4.23-9.07) x10^3/uL RBC 4.40 L (4.63-6.08) x10^6/uL Hgb 13.8 (13.7-17.5) g/dL Hct 40.7 (40.1-51.0) % MCV 92.5 H (79.0-92.2) fL MCH 31.4 (25.7-32.2) pg MCHC 33.9 (32.3-36.5) g/dL RDW 13.7 (11.6-14.4) % Plt Count 161 L (163-337) x10^3/uL MPV 9.8 (9.4-12.4) fL Gran % 72.7 H (34.0-67.9) % Immature Gran % (Auto) 0.2 (0.001-0.429) % Nucleat RBC Rel Count 0.0 (0.00-0.2) % Eos # (Auto) 0.11 (0.04-0.54) x10^3/uL Immature Gran # (Auto) 0.02 (0.001-0.031) x10^3u/L Absolute Lymphs (auto) 1.18 L (1.32-3.57) x10^3/uL Absolute Monos (auto) 0.86 H (0.30-0.82) x10^3/uL Absolute Nucleated RBC 0.00 (0.00-0.012) x10^3u/L Lymphocytes % 14.6 L (21.8-53.1) % Monocytes % 10.6 (5.3-12.2) % Eosinophils % 1.4 (0.8-7.0) % Basophils % 0.5 (0.2-1.2) % Absolute Granulocytes 5.89 H (1.78-5.38) x10^3/uL Basophils # 0.04 (0.01-0.08) x10^3/uL Sodium 143 (135-145) mmol/L Potassium 3.5 (3.5-5.1) mmol/L Chloride 102 (98-107) mmol/L Carbon Dioxide 32 H (22-30) mmol/L Anion Gap 12.3 (5-15) MEQ/L BUN 32 H (9-20) mg/dL Creatinine 1.73 H (0.66-1.25) mg/dL Estimated GFR 39.2 ML/MIN Glucose 145 H (74-106) mg/dL Calcium 9.6 (8.4-10.2) mg/dL Troponin I (0.000-0.033) ng/mL Urine Color (Yellow) Urine Appearance (Clear) Urine pH (4.6-8.0) Ur Specific [place] (1.005-1.030) Urine Protein (Negative) Urine Glucose (UA) (Negative) mg/dL Urine Ketones (Negative) Urine Blood (Negative) Urine Nitrite (Negative) Urine Bilirubin (Negative) Urine Urobilinogen (0.2) mg/dL Ur Leukocyte Esterase (Negative) U Hyaline Cast (Auto) (0-2) /LPF Urine Microscopic RBC (0-5) /HPF Urine Microscopic WBC (0-5) /HPF Ur Epithelial Cells (None Seen) /HPF Urine Bacteria (None Seen) /HPF Urine Culture Reflexed (NO) Urine Opiates Level (NEGATIVE) Ur Methadone (NEGATIVE) Urine Barbiturates (NEGATIVE) Ur Phencyclidine (PCP) (NEGATIVE) Urine Amphetamine (NEGATIVE) U Benzodiazepine Level (NEGATIVE) Urine Cocaine (NEGATIVE) Urine Marijuana (THC) (NEGATIVE) Ethyl Alcohol < 10 (0-10) mg/dL - Progress Progress: improved Progress Note: 05/26/24 23:29 NIHSS - 0 05/26/24 23:46 sx completely resolved at time of exam 05/27/24 01:[address] and CTA head/neck negative for acute pathology lab workup largely unremarkable aside from elevated creatinine which appears chronic troponins negative pt has significant cardiac hx as well as hx of diabetes placing him at increased risk for stroke, plan to attempt transfer to tertiary care center for likely evaluation by neurology and completion of stroke w/o 05/27/24 01:40 I spoke w/ Dr Young - hospitalist at [facility] who is willing to accept pt for transfer and further evaluation Medical Desision Making - Diagnostic Testing Diagnostic test were ordered, analyzed, and reviewed by me: Yes Radiological Interpretation: Reviewed by me, Teleradiologist Report - Risk of complications The pt has a high risk of morbidity or mortality based on: Decision regarding hospitilization or escalation of hosp level of care - Departure Departure Disposition: Transfer Clinical Impression: TIA (transient ischemic attack) Condition: Stable Critical Care Time: No Referrals: EDITH FIELD MD [Primary Care Provider] - Follow up/PCP as directed
[2024-05-26 22:21] VITALS: TEMP 98
--- NOTE | 2024-05-26 22:50 | XRAY ---
CLINICAL HISTORY: UE numbness COMPARISON: 02/15/2023. TECHNIQUE: An axial non-contrast CT scan of the brain was performed from the skull base to the high parietal region. One of the following dose-reduction techniques was utilized for this exam. Automated exposure control, adjustment of the mA and/or kV according to patient size, and use of iterative reconstruction. FINDINGS: Age-related cortical involutional changes are associated with a prominence of extra-axial cortical sulci, gyral pattern, and mild prominent lateral ventricles. Periventricular white matter hypodensities in keeping with chronic microvascular ischemic changes. Agee-white matter differentiation is maintained. No midline shifts or deformity. No intracerebral or extra axial hematoma. Normal CT appearance of the posterior fossa structures namely the cerebellar hemispheres, brainstem, and cerebellar peduncles. The bony structures in the skull base are unremarkable. There are no definite calvarium fractures. The scanned paranasal sinuses are clear. IMPRESSION: 1. No evidence of intracerebral hemorrhage or established infarction. 2. Re-demonstration of microvascular ischemic changes in deep white matter and senile changes. 3. Early changes of stroke may not be detected on a CT scan. If there is strong clinical suspicion of stroke, then suggest MRI with diffusion-weighted imaging. [facility] ER was called at [phone] at 09:44 PM RESOURCE RECOVERY ENGINEER, 05/26/2024 Satish Pereyra was informed regarding the stroke results. Electronically Signed by: Arcelia Lowe MD. (05/26/2024 22:45:49 EDT)
[2024-05-26 22:55] LABS: Absolute Neutrophil Ct (ANC) 5.89 x10^3/uL (1.78-5.38); BASOPHIL % 0.5 % (0.2-1.2); Basophil (Absolute #) 0.04 x10^3/uL (0.01-0.08); Eosinophil % 1.4 % (0.8-7.0); Eosinophil (Absolute #) 0.11 x10^3/uL (0.04-0.54); Hematocrit 40.7 % (40.1-51.0); Hemoglobin 13.8 g/dL (13.7-17.5); IMMATURE GRAN # 0.02 x10^3u/L (0.001-0.031); IMMATURE GRAN % 0.2 % (0.001-0.429); Lymphocyte (Absolute #) 1.18 x10^3/uL (1.32-3.57); Lymphocytes % 14.6 % (21.8-53.1); Mean Cell Volume 92.5 fL (79.0-92.2); Mean Corpuscular Hemoglobin 31.4 pg (25.7-32.2); Mean Corpuscular Hgb Concent. 33.9 g/dL (32.3-36.5); Mean Platelet Volume 9.8 fL (9.4-12.4); Monocyte (Absolute #) 0.86 x10^3/uL (0.30-0.82); Monocytes % 10.6 % (5.3-12.2); Neutrophil % 72.7 % (34.0-67.9); Platelet Count 161 x10^3/uL (163-337); Red Cell Distribution Width 13.7 % (11.6-14.4); White Blood Count 8.1 x10^3/uL (4.23-9.07)
[2024-05-26 23:10] LABS: ANION GAP 12.3 MEQ/L (5-15); BLOOD UREA NITROGEN 32 mg/dL (9-20); CHLORIDE 102 mmol/L (98-107); Calcium 9.6 mg/dL (8.4-10.2); Carbon Dioxide 32 mmol/L (22-30); Creatinine 1 1.73 mg/dL (0.66-1.25); EST GLOMERULAR FILTRATION RATE 39.2 ML/MIN; ETHYL ALCOHOL < 10 mg/dL (0-10); Glucose 145 mg/dL (74-106); Potassium 3.5 mmol/L (3.5-5.1); SODIUM 143 mmol/L (135-145)
[2024-05-26 23:16] LABS: Appearance Clear (Clear); Bacteria None Seen /HPF (None Seen); Bilirubin Negative (Negative); Blood Negative (Negative); Epithelial Cells None Seen /HPF (None Seen); Glucose, Urine Negative (Negative); Ketones Negative (Negative); Leukocyte Esterase Negative (Negative); Nitrite Negative (Negative); Ph 5.5 (4.6-8.0); Protein,Urine Dip 100 (Negative); RBC 0-2 /HPF (0-5); Urobilinogen 0.2 mg/dL (0.2); WBC 0-2 /HPF (0-5)
[2024-05-26 23:20] LABS: Amphetamine,Urine NEGATIVE (NEGATIVE); Barbiturate,Urine NEGATIVE (NEGATIVE); Benzodiazepine,Urine NEGATIVE (NEGATIVE); Cocaine,Urine NEGATIVE (NEGATIVE); Methadone,Urine NEGATIVE (NEGATIVE); Opiate,Urine NEGATIVE (NEGATIVE); PCP,Urine NEGATIVE (NEGATIVE); THC,Urine NEGATIVE (NEGATIVE)
[2024-05-26] MEDS ORDERED: Sodium Chloride 0.9% 500 ML 500 ML IV ONE (23:47)
[2024-05-26] MEDS: Sodium Chloride 0.9% 500 ML 500 ML IV ONE (23:48)
--- NOTE | 2024-05-27 01:00 | XRAY ---
CLINICAL HISTORY: blurry vision, UE weakness COMPARISON: CT head scan done on 15 FEBRUARY 2023 TECHNIQUE: Multiple axial images are obtained from the skull base to the vertex with and without contrast. CT scan was performed according to ALARA (as low as reasonable achievable). FINDINGS: There is cerebral atrophy. No evidence of space occupying lesion, hemorrhage, edema, mass effect, midline shift, extra axial collection, or hydrocephalus is noted. Basal cisterns are symmetric and normal in size and configuration. There are scattered periventricular hypodensities as can be seen with chronic microvascular ischemic changes. The chopra-white matter differentiation is preserved. No abnormal enhancement seen in the brain parenchyma Visualized paranasal sinuses and mastoid air cells are well aerated. Orbital contents are within normal limits. Bony structures are intact. Bilateral internal carotid arteries show normal course, calibre and opacification in the canalicular and cavernous part. Their division into the anterior cerebral artery and middle cerebral artery is defined. A1, A2 and M1, M2 segments are normal on both the sides. Non-opacification of proximal intracranial portion of right vertebral artery with wall calcification - Thrombosis/occlusion. Bilateral vertebral arteries are seen to unite the form the basilar artery. Non-opacification of intracranial portion of right vertebral artery with wall calcification. Basilar artery shows normal course, caliber and opacification. Its division into the posterior cerebral arteries is defined. Bilateral P1 and P2 segments are normal. Visualized venous structures show normal opacification. No evidence of intracranial aneurysm or AV malformation is seen. IMPRESSION: 1. No evidence of acute intracranial abnormality is demonstrated. 2. Chronic microvascular ischemic changes. 3. Cerebral atrophy. 4. Non-opacification of proximal intracranial portion of right vertebral artery with wall calcification - Thrombosis/occlusion. Contrast opacification seen in distal segment. Electronically Signed by: Hector Tolentino MD. (05/27/2024 00:57:14 EDT)
--- NOTE | 2024-05-27 01:01 | XRAY ---
CLINICAL HISTORY: blurry vision, UE weakness COMPARISON: - TECHNIQUE: Contrast enhanced thin slice CT angiography scan of the carotid vessels was performed with intravenous contrast. Angiographic images were processed, 3D MIP images were acquired for interpretation.Contiguous axial images were obtained. Reformatted coronal and sagittal images were also reviewed. If IV contrast material had not been administered, the likelihood of detecting abnormalities relevant to the patients condition would have been substantially decreased. CT scan was performed according to ALARA (as low as reasonable achievable). FINDINGS: Atherosclerotic calcification of arch fo aorta is seen Small eccenteric calcific plaques are seen in bilateral common carotid bulb extending into proximal interal carotid arteries causing mild stenosis of around 10-15 percent. Thin attenuated opacification of right vertebral artery. Non-opacification of proximal intracranial portion of right vertebral artery with wall calcification - Thrombosis/occlusion. Contrast opacification seen in distal segment. Common carotid artery, carotid Bulb, internal carotid artery , and origin of the external carotid artery are well opacified. Atherosclerotic calcification of proximal V4 segment of bilateral vertebral arteries is seen causing mild to moderate narrowing. Left vertebral artery is normal. Jugular veins are well opacified. Included lung apices are grossly unremarkable. Thyroid gland shows nodule in the left lobe, USG Neck is advised IMPRESSION: 1. Small eccenteric calcific plaques in bilateral common carotid bulb extending into proximal interal carotid arteries causing mild stenosis of around 10-15 percent. 2. Atherosclerotic calcification of proximal V4 segment of bilateral vertebral arteries is seen causing mild to moderate narrowing. 3. Thin attenuated opacification of right vertebral artery. Non-opacification of proximal intracranial portion of right vertebral artery with wall calcification - Thrombosis/occlusion. Contrast opacification seen in distal segment. Electronically Signed by: Hector Tolentino MD. (05/27/2024 00:57:27 EDT)
[2024-05-27 02:06] VITALS: O2SAT 96
[2024-05-27 03:05] VITALS: BP 180/94; PULSE 90; RESP 21
== END 2024-05-27 03:35 | disposition short-term general hospital (02) ==
LOC: ED 22:03
DX: G45.9 Transient cerebral ischemic attack, unspecified (principal); H53.8 Other visual disturbances; R51.9 Headache, unspecified; E78.5 Hyperlipidemia, unspecified; I10 Essential (primary) hypertension; E11.9 Type 2 diabetes mellitus without complications; Z79.02 Long term (current) use of antithrombotics/antiplatelets; Z79.899 Other long term (current) drug therapy
CPT/HCPCS: 36415; 70450; 70496; 70498; 80048; 80307; 81001; 82077; 84484; 85025; 93005; 99285

== ENCOUNTER 2025-05-26 11:34 | Emergency (ER) | payer MEDICARE ==
[2025-05-26 11:48] VITALS: TEMP 98.2
[2025-05-26 11:57] LABS: BASOPHIL % 0.5 % (0.2-1.2); Basophil (Absolute #) 0.03 x10^3/uL (0.01-0.08); Eosinophil (Absolute #) 0.06 x10^3/uL (0.04-0.54); Hematocrit 41.3 % (40.1-51.0); Hemoglobin 13.7 g/dL (13.7-17.5); IMMATURE GRAN # 0.04 x10^3u/L (0.001-0.031); IMMATURE GRAN % 0.6 % (0.001-0.429); Lymphocyte (Absolute #) 0.94 x10^3/uL (1.32-3.57); Mean Corpuscular Hemoglobin 32.0 pg (25.7-32.2); Mean Corpuscular Hgb Concent. 33.2 g/dL (32.3-36.5); Monocyte (Absolute #) 0.53 x10^3/uL (0.30-0.82); NUCLEATED RBC # 0.00 x10^3u/L (0.00-0.012); NUCLEATED RBC % 0.0 % (0.00-0.2); Platelet Count 144 x10^3/uL (163-337); Red Blood Count 4.28 x10^6/uL (4.63-6.08); White Blood Count 6.5 x10^3/uL (4.23-9.07)
[2025-05-26 12:05] LABS: Calcium 9.5 mg/dL (8.4-10.2); Carbon Dioxide 29.0 mmol/L (22-30); Creatinine 1 1.33 mg/dL (0.66-1.25); EST GLOMERULAR FILTRATION RATE 53.4 ML/MIN; Glucose 219.0 mg/dL (74-106); Potassium 4.0 mmol/L (3.5-5.1); SGOT/AST 24.0 U/L (17-59); SGPT/ALT 23.0 U/L (0-50); Total Protein 6.9 g/dL (6.3-8.2)
--- NOTE | 2025-05-26 12:43 | ERPHSYRPT ---
- History of Present Illness Time Seen by Provider: 05/26/25 11:51 Patient Subjective Stated Complaint: patietn drove him to ED today he is having numbness and tinglign in his left hand and lower arm Triage Nursing Assessment: patient walked into ED for numbness tingling in right wrist , he is already wearing a heart monitor . he says he always has some chest pain. patient is alert nad orietnedx4, ambualtes by self and gait is steady strong pulses bialteral radius. pupils perrla 3, lung sounds clear. Has some bruising on skin but is on blood thinners Physician History: Numbness to right wrist, onset of symptoms yesterday and worse today, he has no weakness, he is a right-handed individual, he uses a cane to walk around not because he has to but mainly for safety reasons, the numbness is only in the right palm and wrist, no numbness to the fingers, no pain, no weakness to the right hand, He was told in the past that he has narrow veins in the back of his brain and that he may be at risk for developing a stroke he was concerned that he may have developed a stroke, He is undergoing an extensive workup for chest pain which he always has that is not new Timing/Duration: yesterday Severity: moderate Character of Deficits: altered sensation, RUE Deficits: no difficulties Baseline/Normal Cognition: alert oriented x 3 Current Cognition: alert oriented x 3 Baseline Gait: uses cane Associated Symptoms: denies symptoms Allergies/Adverse Reactions: No Known Drug Allergies Allergy (Verified 05/26/25 11:37) Home Medications: Hydralazine HCl 100 mg PO BID 01/28/16 [History] Potassium Chloride 20 Meq [Klor-Con 20 MEQ] 20 meq PO BID 01/28/16 [History] Clopidogrel Bisulfate [PLAVIX Tablet] 75 mg PO DAILY 09/17/16 [History] Aspirin [Aspirin EC] 325 mg PO DAILY 09/27/17 [History] Atorvastatin Calcium [Lipitor 20MG Tablet] 20 mg PO DAILY 09/27/17 [History] Valsartan/Hydrochlorothiazide [Valsartan-Hctz 160-25 mg Tab] 1 tab PO BID 05/26/24 [History] carvediloL [Carvedilol] 12.5 mg PO BID 05/26/24 [History] Nitroglycerin 0.4 mg Tablet [Nitrostat 0.4 MG Tablet] 0.4 mg SL PRN PRN 05/26/25 [History] Hx Tetanus, Diphtheria Vaccination/Date Given: No Hx Influenza Vaccination/Date Given: Yes Hx Pneumococcal Vaccination/Date Given: Yes Immunizations Up to Date: Yes Travel Risk - International Travel Have you traveled outside of the country in past 3 weeks: No - Emerging Infectious Disease Are you exhibiting symptoms associated with any current EIDs: No - Past Medical History Pertinent Past Medical History: Yes Neurological History: No Pertinent History ENT History: Cataracts Cardiac History: High Cholesterol, Hypertension Respiratory History: Sleep Apnea Endocrine Medical History: Diabetes Type II Musculoskeletal History: No Pertinent History GI Medical History: GI Bleed, Polyps History: No Pertinent History Psycho-Social History: No Pertinent History Male Reproductive Disorders: No Pertinent History Other Medical History: water retention, VBI - Past Surgical History Past Surgical History: Yes Neuro Surgical History: No Pertinent History Cardiac: Cardiac Catheterization Respiratory: No Pertinent History Gastrointestinal: Colon Resection Genitourinary: No Pertinent History Musculoskeletal: Other Male Surgical History: No Pertinent History Other Surgical History: colon resection--ulcer, SHOULDER BILAT, Aleks knees Significant Family History: heart disease, hypertension - Social History Smoking Status: Never smoker Exposure to second hand smoke: No Drug Use: none - Social Determinants of Health Will the patient participate in the screening: Yes Do you worry about a steady place to live?: No Do you have any problems with any of the following?: No known problems In the past 12 months,have you had to go without utilities?: No Transportation Issues: No Has anyone in your support network made you feel unsafe?: No Have you or anyone in your house had to go w/o enough food: No - Nursing Vital Signs Nursing Vital Signs: Initial Vital Signs Pulse Rate 80 05/26/25 11:34 Respiratory Rate 22 05/26/25 11:34 Blood Pressure 187/90 05/26/25 11:34 O2 Sat by Pulse Oximetry 97 05/26/25 11:34 Pain Scale Pain Intensity 0 - Uli Coma Scale Best Eye Response (Uli): (4) open spontaneously Best Verbal Response (Uli): (5) oriented Best Motor Response ([place]): (6) obeys commands Uli Total: 15 - Physical Exam General Appearance: no apparent distress, alert Eye Exam: bilateral eye: normal inspection, PERRL, EOMI Ears, Nose, Throat Exam: normal ENT inspection, moist mucous membranes Neck Exam: normal inspection, non-tender, supple Respiratory: normal breath sounds, lungs clear, airway intact, No respiratory distress Cardiovascular: regular rate/rhythm, No edema Gastrointestinal: soft, No tenderness, No distention Back Exam: normal inspection Extremity Exam: normal inspection, No pedal edema 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, 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 Exam: normal speech, PERRL, tongue midline Coordination/Gait: normal finger to nose, normal cerebellar function Motor/Sensory: no motor deficit Skin Exam: normal color, warm, dry, No rash SpO2 Interpretation: normal SpO2: 97 Ordered Tests: Active Orders 24 hr Category Date Time Status IV Insertion STAT Care 05/26/25 11:47 Active CERVICAL SPINE WO CONTRAST [CT] Stat Exams 05/26/25 11:49 Completed HEAD WITHOUT CONTRAST [CT] Stat Exams 05/26/25 11:48 Taken CBC W DIFF Stat Lab 05/26/25 11:40 Completed CMP Stat Lab 05/26/25 11:40 Completed Lab/Rad Data: Laboratory Result Diagrams 05/26/25 11:40 05/26/25 11:40 Laboratory Results 05/26/25 05/26/25 Range/Units 11:40 11:40 WBC 6.5 (4.23-9.07) x10^3/uL RBC 4.28 L (4.63-6.08) x10^6/uL Hgb 13.7 (13.7-17.5) g/dL Hct 41.3 (40.1-51.0) % MCV 96.5 H (79.0-92.2) fL MCH 32.0 (25.7-32.2) pg MCHC 33.2 (32.3-36.5) g/dL RDW 13.5 (11.6-14.4) % Plt Count 144 L (163-337) x10^3/uL MPV 10.1 (9.4-12.4) fL Gran % 75.5 H (34.0-67.9) % Immature Gran % (Auto) 0.6 H (0.001-0.429) % Nucleat RBC Rel Count 0.0 (0.00-0.2) % Eos # (Auto) 0.06 (0.04-0.54) x10^3/uL Immature Gran # (Auto) 0.04 H (0.001-0.031) x10^3u/L Absolute Lymphs (auto) 0.94 L (1.32-3.57) x10^3/uL Absolute Monos (auto) 0.53 (0.30-0.82) x10^3/uL Absolute Nucleated RBC 0.00 (0.00-0.012) x10^3u/L Lymphocytes % 14.4 L (21.8-53.1) % Monocytes % 8.1 (5.3-12.2) % Eosinophils % 0.9 (0.8-7.0) % Basophils % 0.5 (0.2-1.2) % Absolute Granulocytes 4.93 (1.78-5.38) x10^3/uL Basophils # 0.03 (0.01-0.08) x10^3/uL Sodium 140 (135-145) mmol/L Potassium 4.0 (3.5-5.1) mmol/L Chloride 103 (98-107) mmol/L Carbon Dioxide 29 (22-30) mmol/L Anion Gap 13.0 (5-15) MEQ/L BUN 25 H (9-20) mg/dL Creatinine 1.33 H (0.66-1.25) mg/dL Estimated GFR 53.4 ML/MIN Glucose 219 H (74-106) mg/dL Calcium 9.5 (8.4-10.2) mg/dL Total Bilirubin 0.50 (0.2-1.3) mg/dL AST 24 (17-59) U/L ALT 23 (0-50) U/L Alkaline Phosphatase 54 (38-126) U/L Serum Total Protein 6.9 (6.3-8.2) g/dL Albumin 4.3 (3.5-5.0) g/dL - Progress Progress Note: 05/26/25 14:[address] and lab reports, Recommend that he not use his right hand only to walk with his cane only to walk with his cane - Departure Departure Disposition: Home Clinical Impression: Carpal tunnel syndrome of right wrist Condition: Fair Critical Care Time: No Referrals: EDITH FIELD MD [Primary Care Provider, [facility]] - Follow up with PCP 7 days Instructions: Carpal tunnel syndrome Additional Instructions: Continue home medications, Follow-up with your primary care doctor for possible physical therapy
--- NOTE | 2025-05-26 13:22 | XRAY ---
CLINICAL HISTORY: numbness right hand COMPARISON: No previous CT spine studies are available for comparison. TECHNIQUE: CT scan of the cervical spine was performed without the administration of intravenous contrast. Contiguous axial images were obtained from the skull base to the upper thoracic spine. Coronal and sagittal reformatted images were also reviewed. One of the following dose reduction techniques was utilized for this exam: automated exposure control, adjustment of the mA and/or kV according to patient size, and use of iterative reconstruction. FINDINGS: Vertebrae: Spastic straightening of the cervical spine with a minimal right scoliotic tilt is noted, denoting neck muscle spasm. Diffuse osteopenia is present. There is no evidence of acute fracture or dislocation. Atlanto-occipital articulation is normal. There are no signs of lytic or sclerotic lesions. The configuration of the posterior elements is normal. There is minimal degenerative anterolisthesis of C3 over C4 and C4 over C5 vertebral bodies, with Grade I degenerative spondylolisthesis. Spondylodegenerative changes are noted along the spine, with vertebral endplate irregularities and marginal osteophytes. Arthritic changes are observed along the median atlanto-axial joint, with osseous hypertrophy and ossification along the surrounding ligaments. There are posterior longitudinal ligament calcifications. Calcifications are present in the ligamentum nuchae. Intervertebral discs: The intervertebral disc spaces show reduced heights. Multilevel central and foraminal disc herniation with superimposed central, subarticular, and foraminal osseous hypertrophy are seen, all of which contribute to neural compromise. Fine calcifications are noted within the discs. C3-C4: Bilateral moderate neural foraminal stenosis is present, along with mild to moderate spinal canal stenosis. C4-C5: Bilateral moderate neural foraminal stenosis is present, along with mild to moderate spinal canal stenosis. C5-C6: Bilateral moderate neural foraminal stenosis is present, along with mild to moderate spinal canal stenosis. C6-C7: Bilateral moderate neural foraminal stenosis is present, along with mild to moderate spinal canal stenosis. Facet Joints: Multilevel facet joint and neurocentral arthropathy are seen, without evidence of dislocation or subluxation. Prevertebral Soft Tissues: The prevertebral soft tissues are normal in thickness, without evidence of mass or abnormal fluid collection. Additional Findings: Bilateral thyroid nodules are present, with the largest seen in the left thyroid lobe measuring 14.3 mm. Bilateral mild calcific vascular plaques are noted. IMPRESSION: 1. Secondary changes of neck muscle spasm. 2. Grade I degenerative spondylolisthesis of C3 over C4 and C4 over C5 vertebral bodies. 3. No evidence of acute fracture or dislocation along the vertebral bodies, facet joints, or posterior elements. 4. Cervical spondylosis. 5. Decreased disc heights with variable degrees of disc herniation and subsequent spinal and neural foraminal stenosis. 6. Bilateral thyroid nodules. Neck US is advised. Electronically Signed by: Mark Rivera MD. (05/26/2025 13:21:39 EDT)
[2025-05-26 14:02] VITALS: BP 175/92
[2025-05-26 14:03] VITALS: PULSE 73; RESP 20
[2025-05-26 14:20] VITALS: O2SAT 97
--- NOTE | 2025-05-28 15:46 | XRAY ---
CLINICAL HISTORY: numbness COMPARISON: The prior CT head studies dated 05/26/2024 and 02/15/2023 were both reviewed. TECHNIQUE: Axial non-contrast CT scan of the brain was performed from the skull base to the high parietal region. One of the following dose reduction techniques was utilized for this exam: automated exposure control, adjustment of the mA and/or kV according to patient size, and use of iterative reconstruction. FINDINGS: Brain Parenchyma: There is no evidence of recent territorial ischemic insult, hemorrhage, or mass effect. Redemonstration of exaggerated deep white matter hypodensities is most prominent along the centrum semiovale, matthews radiata, and both periventricular regions, suggesting chronic microvascular ischemic changes. The central midline structures are unremarkable. Ventricular System: The supra- and infratentorial ventricular system is dilated but maintains normal configuration, likely as part of the involutional process. There are scattered bilateral choroid plexus and falcine foci of calcification. Subarachnoid Spaces: There is no evidence of subarachnoid hemorrhage or extra-axial fluid collections. Mildly exaggerated cortical sulci, sylvian fissures, as well as extra-axial CSF spaces, are noted. Cerebellum and Brainstem: There are no masses, lesions, or areas of abnormal density. Orbits: There is normal appearance of the globes, optic nerves, and extraocular muscles. There is no evidence of orbital masses or abnormal density. Sinuses: The paranasal sinuses are clear. There is no evidence of sinusitis or mucosal thickening. Mastoid Air Cells: The mastoid air cells are clear. There is no evidence of mastoiditis. Skull: There is normal skull morphology. There is no evidence of fractures or depressed bone fragments. IMPRESSION: 1. No evidence of acute hemorrhage. 2. There is no evidence of acute territorial ischemic insult by non-contrast CT criteria, considering that early changes of stroke may not be detected on a CT scan. If there is a strong clinical suspicion of stroke, then MRI with diffusion-weighted imaging is suggested. 3. Cortical and central age-related brain involutional changes. 4. Chronic ischemic deep white matter changes as described. 5. Overall, no gross interval changes are seen compared to the prior CT study. Electronically Signed by: Mark Rivera MD. (05/26/2025 13:20:55 EDT)
== END 2025-05-26 14:28 | disposition home or self-care (01) ==
LOC: ED 11:34
DX: G56.01 Carpal tunnel syndrome, right upper limb (principal); I10 Essential (primary) hypertension; E11.9 Type 2 diabetes mellitus without complications; Z79.02 Long term (current) use of antithrombotics/antiplatelets; Z79.899 Other long term (current) drug therapy